=== PATIENT | male | born 1940 | race Caucasian/White ===

== ENCOUNTER 2020-11-30 20:08 | Inpatient (IN) | payer MEDICARE, BC ==
--- NOTE | 2020-11-30 20:18 | EDM.PDOC ---
ED HPI GENERAL MEDICAL PROBLEM - General Chief Complaint: Respiratory Problem Stated Complaint: COVID,SOB Time Seen by Provider: 11/30/20 20:18 Source of Information: Reports: Patient, RN Notes Reviewed History Limitations: Reports: No Limitations - History of Present Illness INITIAL COMMENTS - FREE TEXT/NARRATIVE: Jayjay presents today for complaints of shortness of breath with any activity for the past 24 to 48 hours. He states he cannot walk 10 feet without stopping to breath. He reports coughing so hard he almost passes out. He reports SOB started 2 weeks ago or more. He reports muscle aches for 2 weeks. He reports nausea off and on for 3 to 4 days. he denies fever, chills, diarrhea, constipation, vomiting, chest pain, chest pressure, palpitations, dizziness, syncope or change in urination. Jayjay states he went to see his primary provider Dr. Mari yesterday, had a chest x-ray and some blood work done. COVID19 positive 11/29/2020 Jayjay was started on hydroxychloroquine 200mg PO BID, Azithromycin (Z-pack), cetirizine 10mg PO daily. He also takes ASA 81mg PO daily, cardura 8mg, Vitamin d3 5000units, lisinopril 40mg. NKDA - Related Data Allergies Allergy/AdvReac Type Severity Reaction Status Date / Time No Known Allergies Allergy Verified 11/30/20 21:17 Home Meds: Home Meds Aspirin [Halfprin] 81 mg PO DAILY 11/30/20 [History] Azithromycin [Zithromax] 250 mg PO DAILY 11/30/20 [History] Cetirizine [ZyrTEC] 10 mg PO DAILY 11/30/20 [History] Cholecalciferol (Vitamin D3) [Vitamin D3] 5,000 unit PO DAILY 11/30/20 [History] Doxazosin Mesylate [Cardura] 8 mg PO DAILY 11/30/20 [History] Hydroxychloroquine [Plaquenil] 200 mg PO BID 11/30/20 [History] dilTIAZem HCL [Diltiazem ER] 360 mg PO DAILY 11/30/20 [History] lisinopriL [Lisinopril] 40 mg PO DAILY 11/30/20 [History] methylPREDNISolone [Medrol Dose Pack] 4 mg PO DAILY 11/30/20 [History] ED ROS GENERAL - Review of Systems Review Of Systems: See Below Constitutional: Denies: Fever, Chills, Weakness, Night Sweats, Diaphoresis HEENT: Denies: Ear Discharge, Ear Pain, Eye Discharge, Eye Pain, Sinus Problem, Throat Pain, Throat Swelling, Vision Change Respiratory: Reports: Shortness of Breath (for two weeks, significant worsening the past 24 to 48 hours, not able to ambulate 10 feet without stopping to catch breath. O2 saturation with ambulation on RA 84%.), Cough, Sputum (white). Denies: Wheezing, Pleuritic Chest Pain, Hemoptysis Cardiovascular: Reports: No Symptoms Endocrine: Reports: No Symptoms GI/Abdominal: Reports: No Symptoms : Reports: No Symptoms Musculoskeletal: Reports: Other (body aches for 2 weeks) Skin: Reports: No Symptoms Neurological: Reports: No Symptoms Psychiatric: Reports: No Symptoms Hematologic/Lymphatic: Reports: No Symptoms Immunologic: Reports: No Symptoms Free Text/Narrative/Comment: Patient not vaccinated. He denies any previous COVID19 related illness or infections. Jayjay lives by himself. ED EXAM, GENERAL - Physical Exam Exam: See Below Free Text/Narrative:: Jayjay is an alert and oriented 80 year old with dyspnea and hypoxia upon ambulation. Exam Limited By: No Limitations General Appearance: Alert, WD/WN, Moderate Distress Eye Exam: Bilateral Eye: Normal Inspection, PERRL Ears: Normal External Exam, Normal Canal, Hearing Grossly Normal Ear Exam: Right Ear: TM normal (R TM obstructed by cerumen) Nose: Normal Inspection, No Blood. No: Nasal Tenderness, Nasal Swelling, Nasal Drainage, Nasal Flaring Throat/Mouth: Normal Inspection, Normal Lips, Normal Gums, Normal Oropharynx, Normal Voice, No Airway Compromise Head: Atraumatic, Normocephalic Neck: Normal Inspection, Supple, Non-Tender, Full Range of Motion. No: Lymphadenopathy (R), Lymphadenopathy (L) Respiratory/Chest: Chest Non-Tender, Decreased Breath Sounds, Rales (to RLL), Accessory Muscle Use (with activity or ambulation. No accessory muscle use with rest and oxygen per NC). No: Rhonchi, Wheezing, Stridor, Retractions, Splinting Cardiovascular: Normal Peripheral Pulses, Regular Rate, Rhythm, No Edema, No Gallop, No Murmur, No Rub Peripheral Pulses: 4+: Radial (L), Radial (R) GI/Abdominal: Normal Bowel Sounds, Soft, Non-Tender, No Organomegaly, No Distention, No Mass. No: Guarding, Rigid, Rebound, Tender (Male) Exam: Deferred Rectal (Males) Exam: Deferred Back Exam: Normal Inspection, Full Range of Motion. No: CVA Tenderness (R), CVA Tenderness (L) Extremities: Normal Inspection, Normal Range of Motion, Non-Tender, No Pedal Edema, Normal Capillary Refill Neurological: Alert, Oriented, Normal Cognition, Normal Gait, No Motor/Sensory Deficits Psychiatric: Normal Affect, Normal Mood Skin Exam: Warm, Dry, Intact, Normal Color, No Rash Lymphatic: No Adenopathy Course - Vital Signs Last Recorded V/S: Last Vital Signs Temp 36.7 C 11/30/20 20:10 Pulse 69 11/30/20 21:24 Resp 25 H 11/30/20 21:24 BP 159/76 H 11/30/20 21:24 Pulse Ox 95 11/30/20 21:24 - Orders/Labs/Meds Orders: Active Orders 24 hr Category Date Time Status CULTURE BLOOD [BC] Urgent Lab 11/30/20 21:04 Received CULTURE BLOOD [BC] Urgent Lab 11/30/20 21:16 Received CULTURE RESPIRATORY + SMEAR [RM] Stat Lab 11/30/20 20:53 Ordered Sodium Chloride 0.9% [Normal Saline] 1,000 ml Med 11/30/20 21:00 Active IV ASDIRECTED Sodium Chloride 0.9% [Saline Flush] Med 11/30/20 20:53 Active 10 ml FLUSH ASDIRECTED PRN dexAMETHasone [Decadron] Med 11/30/20 23:45 Active 6 mg IVPUSH Q24H Blood Culture x2 Reflex Set [OM.PC] Urgent Oth 11/30/20 20:53 Ordered Saline Lock Insert [OM.PC] Routine Oth 11/30/20 20:53 Ordered Medication Orders Dexamethasone (Dexamethasone 4 Mg/Ml Sdv) 6 mg IVPUSH Q24H CAMELIA Sodium Chloride (Normal Saline) 1,000 mls @ 50 mls/hr IV ASDIRECTED CAMELIA Last Admin: 11/30/20 21:25 Dose: 50 mls/hr Documented by: GITA Sodium Chloride (Sodium Chloride 0.9% 10 Ml Syringe) 10 ml FLUSH ASDIRECTED PRN PRN Reason: Keep Vein Open Last Admin: 11/30/20 21:26 Dose: 10 ml Documented by: GITA Labs: Laboratory Tests 11/30/20 11/30/20 11/30/20 Range/Units 21:04 21:04 21:04 WBC 9.8 (4.5-11.0) K/uL RBC 4.12 L (4.30-5.90) M/uL Hgb 12.8 (12.0-15.0) g/dL Hct 37.4 L (40.0-54.0) % MCV 91 (80-98) fL MCH 31 (27-31) pg MCHC 34 (32-36) % Plt Count 366 (150-400) K/uL Add Manual Diff Yes Neutrophils % (Manual) 76 H (36-66) % Lymphocytes % (Manual) 7 L (24-44) % Monocytes % (Manual) 17 H (2-6) % Atypical Lymphocytes Few ESR 70 H (0-20) mm/hr PT 10.4 (9.5-12.0) sec INR 0.95 (0.80-1.20) APTT 23.4 L (27.0-36.0) sec D-Dimer, Quantitative (0.0-500.0) ng/mL Puncture Site ABG pH (7.350-7.450) ABG pCO2 (35.0-42.0) mmHg ABG pO2 (75.0-100.0) mmHg ABG HCO3 (22.0-26.0) mmol/L ABG Total CO2 (23.0-27.0) mmol/L ABG O2 Saturation (95.0-98.0) % ABG O2 Content (15.0-23.0) %vol ABG Base Excess mm/L ABG Hemoglobin (13.5-18.0) g/dL ABG Oxyhemoglobin % ABG Carboxyhemoglobin (0.0-1.6) % ABG Methemoglobin % Kade Test O2 Delivery Device Oxygen Flow Rate L Sodium 139 L (140-148) mmol/L Potassium 3.5 L (3.6-5.2) mmol/L Chloride 104 (100-108) mmol/L Carbon Dioxide 22 (21-32) mmol/L Anion Gap 16.5 H (5.0-14.0) mmol/L BUN 25 H (7-18) mg/dL Creatinine 1.2 (0.8-1.3) mg/dL Est Cr Clr Drug Dosing 53.09 mL/min Estimated GFR (MDRD) 58 L (>60) Glucose 127 H (74-106) mg/dL Calcium 8.6 (8.5-10.1) mg/dL Ferritin 779 H (8-388) ng/ml Total Bilirubin 0.4 (0.2-1.0) mg/dL AST 57 H (15-37) U/L ALT 47 (12-78) U/L Alkaline Phosphatase 96 (46-116) U/L Troponin I < 0.017 (0.000-0.056) ng/mL C-Reactive Protein 4.16 H (0.0-0.3) mg/dL Total Protein 6.4 (6.4-8.2) g/dL Albumin 2.7 L (3.4-5.0) g/dL Globulin 3.7 H (2.3-3.5) g/dL Albumin/Globulin Ratio 0.7 L (1.2-2.2) 11/30/20 11/30/20 Range/Units 22:01 22:20 WBC (4.5-11.0) K/uL RBC (4.30-5.90) M/uL Hgb (12.0-15.0) g/dL Hct (40.0-54.0) % MCV (80-98) fL MCH (27-31) pg MCHC (32-36) % Plt Count (150-400) K/uL Add Manual Diff Neutrophils % (Manual) (36-66) % Lymphocytes % (Manual) (24-44) % Monocytes % (Manual) (2-6) % Atypical Lymphocytes ESR (0-20) mm/hr PT (9.5-12.0) sec INR (0.80-1.20) APTT (27.0-36.0) sec D-Dimer, Quantitative 5983.30 H (0.0-500.0) ng/mL Puncture Site Lt radial ABG pH 7.483 H (7.350-7.450) ABG pCO2 26.3 L (35.0-42.0) mmHg ABG pO2 61.6 L (75.0-100.0) mmHg ABG HCO3 19.5 L (22.0-26.0) mmol/L ABG Total CO2 17.2 L (23.0-27.0) mmol/L ABG O2 Saturation 91.7 L (95.0-98.0) % ABG O2 Content 16.3 (15.0-23.0) %vol ABG Base Excess -2.3 mm/L ABG Hemoglobin 12.8 L (13.5-18.0) g/dL ABG Oxyhemoglobin 90.1 % ABG Carboxyhemoglobin 0.9 (0.0-1.6) % ABG Methemoglobin 0.8 % Kade Test Passed O2 Delivery Device Nasal cannula Oxygen Flow Rate 1.0 L Sodium (140-148) mmol/L Potassium (3.6-5.2) mmol/L Chloride (100-108) mmol/L Carbon Dioxide (21-32) mmol/L Anion Gap (5.0-14.0) mmol/L BUN (7-18) mg/dL Creatinine (0.8-1.3) mg/dL Est Cr Clr Drug Dosing mL/min Estimated GFR (MDRD) (>60) Glucose (74-106) mg/dL Calcium (8.5-10.1) mg/dL Ferritin (8-388) ng/ml Total Bilirubin (0.2-1.0) mg/dL AST (15-37) U/L ALT (12-78) U/L Alkaline Phosphatase (46-116) U/L Troponin I (0.000-0.056) ng/mL C-Reactive Protein (0.0-0.3) mg/dL Total Protein (6.4-8.2) g/dL Albumin (3.4-5.0) g/dL Globulin (2.3-3.5) g/dL Albumin/Globulin Ratio (1.2-2.2) Patient lab work reviewed, noted respiratory alkalosis, partially compensated. Meds: Medications Generic Name Dose Route Start Last Admin Trade Name Freq PRN Reason Stop Dose Admin Dexamethasone 6 mg 11/30/20 23:45 Dexamethasone 4 Mg/Ml Sdv IVPUSH Q24H CAMELIA Sodium Chloride 1,000 mls @ 50 mls/hr 11/30/20 21:00 11/30/20 21:25 Normal Saline IV 50 mls/hr ASDIRECTED CAMELIA Administration Sodium Chloride 10 ml 11/30/20 20:53 11/30/20 21:26 Sodium Chloride 0.9% 10 Ml Syringe FLUSH 10 ml ASDIRECTED PRN Administration Keep Vein Open Discontinued Medications Generic Name Dose Route Start Last Admin Trade Name Aydinq PRN Reason Stop Dose Admin Remdesivir 200 mg/ Sodium 250 mls @ 250 mls/hr 11/30/20 23:35 Chloride IV 11/30/20 23:36 ONETIME ONE - Radiology Interpretation Free Text/Narrative:: Chest x-ray completed on 11/29/[address] Mari Report states: patchy airspace opacities throughout the lungs. Infectious etiology though pulmonary edema is less likely. - Re-Assessments/Exams Free Text/Narrative Re-Assessment/Exam: 11/30/20 21:44 O2 turned off while resting on ER stretcher, O2 saturation 93% on RA. 11/30/20 22:15 Discussed patient lab and assessment with Dr. Juanjose Mari, he would like the patient admitted per the hospitalist. Dr. Maldonado notified. Patient notified, he is in agreement with plan. 11/30/20 23:37 Dr. Maldonado assumes care of patient, all his questions answered. Departure - Departure Time of Disposition: 22:30 Disposition: Admitted As Inpatient 66 Clinical Impression: SARS-CoV-2 positive, SARS pneumonia - Discharge Information Referrals: Juanjose Mari Sr, MD [Primary Care Provider] - Forms: ED Department Discharge Sepsis Event Note (ED) - Focused Exam Vital Signs: Vital Signs Temp Pulse Resp BP Pulse Ox 11/30/20 21:24 69 25 H 159/76 H 95 11/30/20 20:40 62 22 H 151/69 H 93 L 11/30/20 20:10 36.7 C 67 26 H 143/56 H 93 L - My Orders Last 24 Hours: My Active Orders 11/30/20 20:53 CULTURE RESPIRATORY + SMEAR [RM] Stat Sodium Chloride 0.9% [Saline Flush] 10 ml FLUSH ASDIRECTED PRN Blood Culture x2 Reflex Set [OM.PC] Urgent Saline Lock Insert [OM.PC] Routine 11/30/20 21:00 Sodium Chloride 0.9% [Normal Saline] 1,000 ml IV ASDIRECTED 11/30/20 21:04 CULTURE BLOOD [BC] Urgent 11/30/20 21:16 CULTURE BLOOD [BC] Urgent - Assessment/Plan Last 24 Hours: My Active Orders 11/30/20 20:53 CULTURE RESPIRATORY + SMEAR [RM] Stat Sodium Chloride 0.9% [Saline Flush] 10 ml FLUSH ASDIRECTED PRN Blood Culture x2 Reflex Set [OM.PC] Urgent Saline Lock Insert [OM.PC] Routine 11/30/20 21:00 Sodium Chloride 0.9% [Normal Saline] 1,000 ml IV ASDIRECTED 11/30/20 21:04 CULTURE BLOOD [BC] Urgent 11/30/20 21:16 CULTURE BLOOD [BC] Urgent Assessment:: SARS-CoV-2 positive, SARS pneumonia Dyspneic on exertion with hypoxia Jayjay will be admitted per Dr. Maldonado. Patient is in agreement with plan. Plan: Patient will be admitted inpatient per Dr. Maldonado.
[2020-11-30] MEDS ORDERED: Sodium Chloride 0.9% 10 ML Syringe FLUSH PRN (20:53)
[2020-11-30] MEDS ORDERED: Sodium Chloride 0.9% 1,000 ML IV SCH (21:00)
[2020-11-30] MEDS ORDERED: REMDESIVIR 200 MG in Sodium Chloride 0.9% 250 ML IV ONE (23:35)
[2020-11-30] MEDS ORDERED: Dexamethasone 4 MG/ML SDV IVPUSH SCH (23:45)
--- NOTE | 2020-11-30 23:45 | PCM.HP.2 ---
H&P History of Present Illness - General Date of Service: 11/30/20 Admit Problem/Dx: Admission Diagnosis/Problem Admission Diagnosis/Problem Pneumonia Source of Information: Patient, Provider History Limitations: Reports: No Limitations - History of Present Illness Initial Comments - Free Text/Narative: CC: I just couldn't breath HPI: Jayjay presents to the emergency room today with about 10-12 days of progressive fatigue, weakness as well as cough and shortness of breath. Symptoms have progressed a little bit more rapidly over the past 3 or 4 days. He is to be able to walk 100 to 150 feet before he became short of breath and now he can only walk 10 to 15 feet before he has to stop to catch his breath. He is coughing frequently with some clear sputum. He does not report any chest pain. He is not aware of any fevers. His appetite has been decreased but he th inks his food intake has been okay. He feels like he gets fatigued much more quickly than he is used to and has been sleeping more than usual. He has had some nausea but has not had any vomiting or diarrhea. No report of myalgias or arthralgias. 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 He did not get his Covid vaccine. He did see his primary care provider yesterday who started him on azithromycin and hydroxychloroquine as well as a Medrol Dosepak. He has gotten worse since those medications were started so he came to the emergency room tonight. Work-up in the emergency room revealed evidence for hypoxia due to the Covid pneumonia diagnosed yesterday. CRP and D-dimer are modestly elevated. Vital signs are stable other than the oxygenation. Patient will be admitted for management of hypoxic respiratory failure due to Covid pneumonia. - Related Data Allergies/Adverse Reactions: Allergies Allergy/AdvReac Type Severity Reaction Status Date / Time No Known Allergies Allergy Verified 11/30/20 21:17 Home Medications: Home Meds Aspirin [Halfprin] 81 mg PO DAILY 11/30/20 [History] Azithromycin [Zithromax] 250 mg PO DAILY 11/30/20 [History] Cetirizine [ZyrTEC] 10 mg PO DAILY 11/30/20 [History] Cholecalciferol (Vitamin D3) [Vitamin D3] 5,000 unit PO DAILY 11/30/20 [History] Doxazosin Mesylate [Cardura] 8 mg PO DAILY 11/30/20 [History] Hydroxychloroquine [Plaquenil] 200 mg PO BID 11/30/20 [History] dilTIAZem HCL [Diltiazem ER] 360 mg PO DAILY 11/30/20 [History] lisinopriL [Lisinopril] 40 mg PO DAILY 11/30/20 [History] methylPREDNISolone [Medrol Dose Pack] 4 mg PO DAILY 11/30/20 [History] Past Medical History Cardiovascular History: Reports: Hypertension - Infectious Disease History Infectious Disease History: Reports: Novel Coronavirus - Past Surgical History GI Surgical History: Reports: Appendectomy Social & Family History - Family History Family Medical History: No Pertinent Family History - Tobacco Use Tobacco Use Status *Q: Former Tobacco User Used Tobacco, but Quit: Yes Month/Year Tobacco Last Used: 45 years - Caffeine Use Caffeine Use: Reports: None - Alcohol Use Alcohol Use History: No - Recreational Drug Use Recreational Drug Use: No H&P Review of Systems - Review of Systems: Review Of Systems: See Below Free Text/Narrative: A complete 12 point review of systems was obtained. Pertinent positives and negatives are noted in the history of present illness. All other systems were reviewed and were negative except as noted. Exam - Exam Exam: See Below - Vital Signs Vital Signs: Last Vital Signs Temp 36.7 C 11/30/20 20:10 Pulse 69 11/30/20 21:24 Resp 25 H 11/30/20 21:24 BP 159/76 H 11/30/20 21:24 Pulse Ox 95 11/30/20 21:24 Weight: 87.09 kg - Exam Quality Assessment: Supplemental Oxygen General: Alert, Oriented, Cooperative. No: Mild Distress HEENT: Conjunctiva Clear. No: Mucosa Moist & [place] (dry), Scleral Icterus Neck: Supple, Trachea Midline Lungs: Normal Respiratory Effort, Crackles (mild diffuse on the right and moderate diffuse on the left ). No: Wheezing Cardiovascular: Regular Rate, Regular Rhythm, Systolic Murmur (RUSB) GI/Abdominal Exam: Normal Bowel Sounds, Soft, Non-Tender, No Distention Back Exam: Normal Inspection, Full Range of Motion Extremities: No Pedal Edema. No: Increased Warmth Peripheral Pulses: 2+: Dorsalis Pedis (L), Dorsalis Pedis (R) Skin: Warm, Dry. No: Rash Neuro Extensive - Mental Status: Alert, Oriented x3 Neuro Extensive - Motor, Sensory, Reflexes: No: Dysarthria, Abnormal Motor, Tremor Psychiatric: Alert, Normal Affect - Patient Data Lab Results Last 24 hrs: Laboratory Results - last 24 hr 11/30/20 11/30/20 11/30/20 Range/Units 21:04 21:04 21:04 WBC 9.8 (4.5-11.0) K/uL RBC 4.12 L (4.30-5.90) M/uL Hgb 12.8 (12.0-15.0) g/dL Hct 37.4 L (40.0-54.0) % MCV 91 (80-98) fL MCH 31 (27-31) pg MCHC 34 (32-36) % Plt Count 366 (150-400) K/uL Add Manual Diff Yes Neutrophils % (Manual) 76 H (36-66) % Lymphocytes % (Manual) 7 L (24-44) % Monocytes % (Manual) 17 H (2-6) % Atypical Lymphocytes Few ESR 70 H (0-20) mm/hr PT 10.4 (9.5-12.0) sec INR 0.95 (0.80-1.20) APTT 23.4 L (27.0-36.0) sec D-Dimer, Quantitative (0.0-500.0) ng/mL Puncture Site ABG pH (7.350-7.450) ABG pCO2 (35.0-42.0) mmHg ABG pO2 (75.0-100.0) mmHg ABG HCO3 (22.0-26.0) mmol/L ABG Total CO2 (23.0-27.0) mmol/L ABG O2 Saturation (95.0-98.0) % ABG O2 Content (15.0-23.0) %vol ABG Base Excess mm/L ABG Hemoglobin (13.5-18.0) g/dL ABG Oxyhemoglobin % ABG Carboxyhemoglobin (0.0-1.6) % ABG Methemoglobin % Kade Test O2 Delivery Device Oxygen Flow Rate L Sodium 139 L (140-148) mmol/L Potassium 3.5 L (3.6-5.2) mmol/L Chloride 104 (100-108) mmol/L Carbon Dioxide 22 (21-32) mmol/L Anion Gap 16.5 H (5.0-14.0) mmol/L BUN 25 H (7-18) mg/dL Creatinine 1.2 (0.8-1.3) mg/dL Est Cr Clr Drug Dosing 53.09 mL/min Estimated GFR (MDRD) 58 L (>60) Glucose 127 H (74-106) mg/dL Calcium 8.6 (8.5-10.1) mg/dL Ferritin 779 H (8-388) ng/ml Total Bilirubin 0.4 (0.2-1.0) mg/dL AST 57 H (15-37) U/L ALT 47 (12-78) U/L Alkaline Phosphatase 96 (46-116) U/L Troponin I < 0.017 (0.000-0.056) ng/mL C-Reactive Protein 4.16 H (0.0-0.3) mg/dL Total Protein 6.4 (6.4-8.2) g/dL Albumin 2.7 L (3.4-5.0) g/dL Globulin 3.7 H (2.3-3.5) g/dL Albumin/Globulin Ratio 0.7 L (1.2-2.2) 11/30/20 11/30/20 Range/Units 22:01 22:20 WBC (4.5-11.0) K/uL RBC (4.30-5.90) M/uL Hgb (12.0-15.0) g/dL Hct (40.0-54.0) % MCV (80-98) fL MCH (27-31) pg MCHC (32-36) % Plt Count (150-400) K/uL Add Manual Diff Neutrophils % (Manual) (36-66) % Lymphocytes % (Manual) (24-44) % Monocytes % (Manual) (2-6) % Atypical Lymphocytes ESR (0-20) mm/hr PT (9.5-12.0) sec INR (0.80-1.20) APTT (27.0-36.0) sec D-Dimer, Quantitative 5983.30 H (0.0-500.0) ng/mL Puncture Site Lt radial ABG pH 7.483 H (7.350-7.450) ABG pCO2 26.3 L (35.0-42.0) mmHg ABG pO2 61.6 L (75.0-100.0) mmHg ABG HCO3 19.5 L (22.0-26.0) mmol/L ABG Total CO2 17.2 L (23.0-27.0) mmol/L ABG O2 Saturation 91.7 L (95.0-98.0) % ABG O2 Content 16.3 (15.0-23.0) %vol ABG Base Excess -2.3 mm/L ABG Hemoglobin 12.8 L (13.5-18.0) g/dL ABG Oxyhemoglobin 90.1 % ABG Carboxyhemoglobin 0.9 (0.0-1.6) % ABG Methemoglobin 0.8 % Kade Test Passed O2 Delivery Device Nasal cannula Oxygen Flow Rate 1.0 L Sodium (140-148) mmol/L Potassium (3.6-5.2) mmol/L Chloride (100-108) mmol/L Carbon Dioxide (21-32) mmol/L Anion Gap (5.0-14.0) mmol/L BUN (7-18) mg/dL Creatinine (0.8-1.3) mg/dL Est Cr Clr Drug Dosing mL/min Estimated GFR (MDRD) (>60) Glucose (74-106) mg/dL Calcium (8.5-10.1) mg/dL Ferritin (8-388) ng/ml Total Bilirubin (0.2-1.0) mg/dL AST (15-37) U/L ALT (12-78) U/L Alkaline Phosphatase (46-116) U/L Troponin I (0.000-0.056) ng/mL C-Reactive Protein (0.0-0.3) mg/dL Total Protein (6.4-8.2) g/dL Albumin (3.4-5.0) g/dL Globulin (2.3-3.5) g/dL Albumin/Globulin Ratio (1.2-2.2) Result Diagrams: 11/30/20 21:04 11/30/20 21:04 Imaging Impressions Last 24 hrs: CxR from the clinic yesterday showed patchy infiltrates throughout per report Sepsis Event Note - Evaluation Sepsis Screening Result: No Definite Risk - Focused Exam Vital Signs: Vital Signs Temp Pulse Resp BP Pulse Ox 11/30/20 21:24 69 25 H 159/76 H 95 11/30/20 20:40 62 22 H 151/69 H 93 L 11/30/20 20:10 36.7 C 67 26 H 143/56 H 93 L *Q Meaningful Use (ADM) - VTE Risk Assess *Q Each Risk Factor Represents 1 Point: Obesity ( BMI > 25 kg/m2), Serious lung di sease including pneumonia Total Score 1 Point Risk Factors: 2 Each Risk Factor Represents 2 Points: None Total Score 2 Point Risk Factors: 0 Each Risk Factor Represents 3 Points: Age 75 Years or Greater Total Score 3 Point Risk Factors: 3 Each Risk Factor Represents 5 Points: None Total Score 5 Point Risk Factors: 0 Venous Thromboembolism Risk Factor Score *Q: 5 - Problem List (1) Pneumonia due to 2019 novel coronavirus SNOMED Code(s): 592252872501051008 ICD Code: U07.1 - COVID-19; J12.82 - PNEUMONIA DUE TO CORONAVIRUS DISEASE 2019 Status: Acute Current Visit: Yes (2) Acute respiratory failure due to COVID-19 SNOMED Code(s): 772395354 ICD Code: U07.1 - COVID-19; J96.00 - ACUTE RESPIRATORY FAILURE, UNSP W HYPOXIA OR HYPERCAPNIA Status: Acute Current Visit: Yes (3) HTN (hypertension) SNOMED Code(s): 25976073 ICD Code: I10 - ESSENTIAL (PRIMARY) HYPERTENSION Status: Chronic Current Visit: Yes Qualifiers: Hypertension type: primary hypertension Qualified Code(s): I10 - Essential (primary) hypertension Problem List Initiated/Reviewed/Updated: Yes Orders Last 24hrs: Active Orders 24 hr Category Date Time Status Patient Status Manage Transfer [TRANSFER] Routine ADT 11/30/20 23:36 Ordered CULTURE BLOOD [BC] Urgent Lab 11/30/20 21:04 Received CULTURE BLOOD [BC] Urgent Lab 11/30/20 21:16 Received CULTURE RESPIRATORY + SMEAR [RM] Stat Lab 11/30/20 20:53 Ordered Sodium Chloride 0.9% [Normal Saline] 1,000 ml Med 11/30/20 21:00 Active IV ASDIRECTED Sodium Chloride 0.9% [Saline Flush] Med 11/30/20 20:53 Active 10 ml FLUSH ASDIRECTED PRN dexAMETHasone [Decadron] Med 11/30/20 23:45 Active 6 mg IVPUSH Q24H Blood Culture x2 Reflex Set [OM.PC] Urgent Oth 11/30/20 20:53 Ordered Saline Lock Insert [OM.PC] Routine Oth 11/30/20 20:53 Ordered Resuscitation Status Routine Resus Stat 11/30/20 23:37 Ordered Medication Orders Dexamethasone (Dexamethasone 4 Mg/Ml Sdv) 6 mg IVPUSH Q24H CAMELIA Sodium Chloride (Normal Saline) 1,000 mls @ 50 mls/hr IV ASDIRECTED CAMELIA Last Admin: 11/30/20 21:25 Dose: 50 mls/hr Documented by: GITA Sodium Chloride (Sodium Chloride 0.9% 10 Ml Syringe) 10 ml FLUSH ASDIRECTED PRN PRN Reason: Keep Vein Open Last Admin: 11/30/20 21:26 Dose: 10 ml Documented by: GITA Assessment/Plan Comment:: ASSESSMENT AND PLAN - COVID-19 pneumonia-complicated by acute respiratory failure with hypoxia. Additional manifestations of weakness and fatigue. Diagnosed yesterday but sym ptoms started 10 to 12 days ago. Worse over the past 3 or 4 days. Unvaccinated. We discussed treatment options including dexamethasone and remdesivir. We did discuss the EUA for remdesivir. We reviewed the potential risks and benefits of this medication. He was interested in using this medicat ion to help treat the Covid infection. -Remdesivir 200 mg x 1 now and then 100 mg for 4 days -Dexamethasone 6 mg daily -Enoxaparin 40 mg every 12 hours -Symptomatic management of cough -Procalcitonin and troponin for baseline -Labs again on Thursday -Isolation precautions Essential hypertension-blood pressure controlled. -Continue home medications Maintenance issues - -DVT prophylaxis-enoxaparin -GI prophylaxis-not indicated -Nutrition-regular -Bergeron catheter-not indicated CODE STATUS -DNR/DNI Admission justification -this patient will be admitted for inpatient services and is medically appropriate meeting medical necessity for inpatient admission as outlined in my documentation. I reasonably expect the patient will require inpatient services that span a period time over 2 midnights. I reasonably expect this patient to be discharged or transferred within 96 hours [facility]. Disposition -I anticipate discharge home after the hospital stay Primary care physician -Dr. Juanjose Maldonado M.D. - Mortality Measure Prognosis:: Good
[2020-12-01] MEDS ORDERED: Acetaminophen 325 MG Tab PO PRN (01:34)
[2020-12-01] MEDS ORDERED: Magnesium Hydroxide 400 MG/5 ML Susp 30 ML Cup PO PRN (01:34)
[2020-12-01] MEDS ORDERED: Ondansetron 4 MG Tab.DIS PO PRN (01:34)
[2020-12-01] MEDS ORDERED: Ondansetron 4 MG/2 ML SDV IV PRN (01:34)
[2020-12-01] MEDS ORDERED: guaiFENesin/Dextromethorphan 100-10 MG/5 ML Soln 10 ML Cup PO PRN (01:34)
[2020-12-01] MEDS ORDERED: Enoxaparin 40 MG/0.4 ML Syringe SUBCUT ONE (02:00)
[2020-12-01] MEDS: Benzonatate 100 MG Cap PO PRN ×2 (02:56→21:02)
[2020-12-01] MEDS: Doxazosin 4 MG Tab PO SCH (08:13)
[2020-12-01] MEDS: Diltiazem 180 MG Cap.CD PO SCH (08:13)
[2020-12-01] MEDS: Cholecalciferol (Vitamin D3) 25 MCG Tab PO SCH (08:13)
[2020-12-01] MEDS: Enoxaparin 40 MG/0.4 ML Syringe SUBCUT SCH ×2 (08:14→21:04)
[2020-12-01] MEDS: Lisinopril 20 MG Tab PO SCH (09:21)
[2020-12-01] MEDS: Aspirin 81 MG Tab.EC PO SCH (09:21)
--- NOTE | 2020-12-01 10:51 | PCM.PN ---
- General Info Date of Service: 12/01/20 Subjective Update: No acute events overnight. Patient still feels a little weak and short of breath but slightly improved compared to yesterday. No diarrhea. No fevers. Still requiring supplemental oxygen and stable since yesterday. Tolerated infusion of remdesivir and injection of dexamethasone last night. Functional Status: Reports: Pain Controlled, Tolerating Diet - Review of Systems General: Reports: Weakness Pulmonary: Reports: Shortness of Breath - Patient Data Vitals - Most Recent: Last Vital Signs Temp 35.6 C L 12/01/20 08:09 Pulse 70 12/01/20 08:09 Resp 18 12/01/20 08:09 BP 177/66 H 12/01/20 09:21 Pulse Ox 92 L 12/01/20 08:09 Weight - Most Recent: 88.451 kg Lab Results Last 24 Hours: Laboratory Results - last 24 hr 11/30/20 11/30/20 11/30/20 Range/Units 21:04 21:04 21:04 WBC 9.8 (4.5-11.0) K/uL RBC 4.12 L (4.30-5.90) M/uL Hgb 12.8 (12.0-15.0) g/dL Hct 37.4 L (40.0-54.0) % MCV 91 (80-98) fL MCH 31 (27-31) pg MCHC 34 (32-36) % Plt Count 366 (150-400) K/uL Add Manual Diff Yes Neutrophils % (Manual) 76 H (36-66) % Lymphocytes % (Manual) 7 L (24-44) % Monocytes % (Manual) 17 H (2-6) % Atypical Lymphocytes Few ESR 70 H (0-20) mm/hr PT 10.4 (9.5-12.0) sec INR 0.95 (0.80-1.20) APTT 23.4 L (27.0-36.0) sec D-Dimer, Quantitative (0.0-500.0) ng/mL Puncture Site ABG pH (7.350-7.450) ABG pCO2 (35.0-42.0) mmHg ABG pO2 (75.0-100.0) mmHg ABG HCO3 (22.0-26.0) mmol/L ABG Total CO2 (23.0-27.0) mmol/L ABG O2 Saturation (95.0-98.0) % ABG O2 Content (15.0-23.0) %vol ABG Base Excess mm/L ABG Hemoglobin (13.5-18.0) g/dL ABG Oxyhemoglobin % ABG Carboxyhemoglobin (0.0-1.6) % ABG Methemoglobin % Kade Test O2 Delivery Device Oxygen Flow Rate L Sodium 139 L (140-148) mmol/L Potassium 3.5 L (3.6-5.2) mmol/L Chloride 104 (100-108) mmol/L Carbon Dioxide 22 (21-32) mmol/L Anion Gap 16.5 H (5.0-14.0) mmol/L BUN 25 H (7-18) mg/dL Creatinine 1.2 (0.8-1.3) mg/dL Est Cr Clr Drug Dosing 53.09 mL/min Estimated GFR (MDRD) 58 L (>60) Glucose 127 H (74-106) mg/dL Calcium 8.6 (8.5-10.1) mg/dL Ferritin 779 H (8-388) ng/ml Total Bilirubin 0.4 (0.2-1.0) mg/dL AST 57 H (15-37) U/L ALT 47 (12-78) U/L Alkaline Phosphatase 96 (46-116) U/L Troponin I < 0.017 (0.000-0.056) ng/mL C-Reactive Protein 4.16 H (0.0-0.3) mg/dL Total Protein 6.4 (6.4-8.2) g/dL Albumin 2.7 L (3.4-5.0) g/dL Globulin 3.7 H (2.3-3.5) g/dL Albumin/Globulin Ratio 0.7 L (1.2-2.2) Procalcitonin ng/mL 11/30/20 11/30/20 12/01/20 Range/Units 22:01 22:20 00:01 WBC (4.5-11.0) K/uL RBC (4.30-5.90) M/uL Hgb (12.0-15.0) g/dL Hct (40.0-54.0) % MCV (80-98) fL MCH (27-31) pg MCHC (32-36) % Plt Count (150-400) K/uL Add Manual Diff Neutrophils % (Manual) (36-66) % Lymphocytes % (Manual) (24-44) % Monocytes % (Manual) (2-6) % Atypical Lymphocytes ESR (0-20) mm/hr PT (9.5-12.0) sec INR (0.80-1.20) APTT (27.0-36.0) sec D-Dimer, Quantitative 5983.30 H (0.0-500.0) ng/mL Puncture Site Lt radial ABG pH 7.483 H (7.350-7.450) ABG pCO2 26.3 L (35.0-42.0) mmHg ABG pO2 61.6 L (75.0-100.0) mmHg ABG HCO3 19.5 L (22.0-26.0) mmol/L ABG Total CO2 17.2 L (23.0-27.0) mmol/L ABG O2 Saturation 91.7 L (95.0-98.0) % ABG O2 Content 16.3 (15.0-23.0) %vol ABG Base Excess -2.3 mm/L ABG Hemoglobin 12.8 L (13.5-18.0) g/dL ABG Oxyhemoglobin 90.1 % ABG Carboxyhemoglobin 0.9 (0.0-1.6) % ABG Methemoglobin 0.8 % Kade Test Passed O2 Delivery Device Nasal cannula Oxygen Flow Rate 1.0 L Sodium (140-148) mmol/L Potassium (3.6-5.2) mmol/L Chloride (100-108) mmol/L Carbon Dioxide (21-32) mmol/L Anion Gap (5.0-14.0) mmol/L BUN (7-18) mg/dL Creatinine (0.8-1.3) mg/dL Est Cr Clr Drug Dosing mL/min Estimated GFR (MDRD) (>60) Glucose (74-106) mg/dL Calcium (8.5-10.1) mg/dL Ferritin (8-388) ng/ml Total Bilirubin (0.2-1.0) mg/dL AST (15-37) U/L ALT (12-78) U/L Alkaline Phosphatase (46-116) U/L Troponin I < 0.017 (0.000-0.056) ng/mL C-Reactive Protein (0.0-0.3) mg/dL Total Protein (6.4-8.2) g/dL Albumin (3.4-5.0) g/dL Globulin (2.3-3.5) g/dL Albumin/Globulin Ratio (1.2-2.2) Procalcitonin ng/mL 12/01/20 12/01/20 Range/Units 04:20 04:20 WBC (4.5-11.0) K/uL RBC (4.30-5.90) M/uL Hgb (12.0-15.0) g/dL Hct (40.0-54.0) % MCV (80-98) fL MCH (27-31) pg MCHC (32-36) % Plt Count (150-400) K/uL Add Manual Diff Neutrophils % (Manual) (36-66) % Lymphocytes % (Manual) (24-44) % Monocytes % (Manual) (2-6) % Atypical Lymphocytes ESR (0-20) mm/hr PT (9.5-12.0) sec INR (0.80-1.20) APTT (27.0-36.0) sec D-Dimer, Quantitative (0.0-500.0) ng/mL Puncture Site ABG pH (7.350-7.450) ABG pCO2 (35.0-42.0) mmHg ABG pO2 (75.0-100.0) mmHg ABG HCO3 (22.0-26.0) mmol/L ABG Total CO2 (23.0-27.0) mmol/L ABG O2 Saturation (95.0-98.0) % ABG O2 Content (15.0-23.0) %vol ABG Base Excess mm/L ABG Hemoglobin (13.5-18.0) g/dL ABG Oxyhemoglobin % ABG Carboxyhemoglobin (0.0-1.6) % ABG Methemoglobin % Kade Test O2 Delivery Device Oxygen Flow Rate L Sodium 142 (140-148) mmol/L Potassium 3.5 L (3.6-5.2) mmol/L Chloride 107 (100-108) mmol/L Carbon Dioxide 22 (21-32) mmol/L Anion Gap 16.5 H (5.0-14.0) mmol/L BUN 21 H (7-18) mg/dL Creatinine 1.0 (0.8-1.3) mg/dL Est Cr Clr Drug Dosing 61.79 mL/min Estimated GFR (MDRD) > 60 (>60) Glucose 160 H (74-106) mg/dL Calcium 8.2 L (8.5-10.1) mg/dL Ferritin (8-388) ng/ml Total Bilirubin 0.4 (0.2-1.0) mg/dL AST 54 H (15-37) U/L ALT 43 (12-78) U/L Alkaline Phosphatase 87 (46-116) U/L Troponin I (0.000-0.056) ng/mL C-Reactive Protein (0.0-0.3) mg/dL Total Protein 5.8 L (6.4-8.2) g/dL Albumin 2.4 L (3.4-5.0) g/dL Globulin 3.4 (2.3-3.5) g/dL Albumin/Globulin Ratio 0.7 L (1.2-2.2) Procalcitonin < 0.05 ng/mL Len Results Last 24 Hours: Microbiology 12/01/20 02:30 Gram Stain - Final Sputum - Expectorated Med Orders - Current: Current Medications Acetaminophen (Acetaminophen 325 Mg Tab) 650 mg PO Q4H PRN PRN Reason: Pain (Mild 1-3)/fever Aspirin (Aspirin 81 Mg Tab.Ec) 81 mg PO DAILY [facility] Last Admin: 12/01/20 09:21 Dose: 81 mg Documented by: Benzonatate (Benzonatate 100 Mg Cap) 100 mg PO TID PRN PRN Reason: Cough Last Admin: 12/01/20 02:56 Dose: 100 mg Documented by: Cholecalciferol (Cholecalciferol (Vitamin D3) 25 Mcg Tab) 125 mcg PO DAILY [facility] Last Admin: 12/01/20 08:13 Dose: 125 mcg Documented by: Dexamethasone (Dexamethasone 4 Mg/Ml Sdv) 6 mg IVPUSH Q24H [facility] Diltiazem HCl (Diltiazem 180 Mg Cap.Cd) 360 mg PO DAILY [facility] Last Admin: 12/01/20 08:13 Dose: 360 mg Documented by: Doxazosin Mesylate (Doxazosin 4 Mg Tab) 8 mg PO DAILY [facility] Last Admin: 12/01/20 08:13 Dose: 8 mg Documented by: Enoxaparin Sodium (Enoxaparin 40 Mg/0.4 Ml Syringe) 40 mg SUBCUT Q12H [facility] Last Admin: 12/01/20 08:14 Dose: 40 mg Documented by: Guaifenesin/Dextromethorphan (Guaifenesin/Dextromethorphan 100-10 Mg/5 Ml Soln 10 Ml Cup) 10 ml PO Q4H PRN PRN Reason: Cough Remdesivir 100 mg/ Sodium (Chloride) 100 mls @ 100 mls/hr IV Q24H [facility] Stop: 12/04/20 21:59 Lisinopril (Lisinopril 20 Mg Tab) 40 mg PO DAILY [facility] Last Admin: 12/01/20 09:21 Dose: 40 mg Documented by: Magnesium Hydroxide (Magnesium Hydroxide 400 Mg/5 Ml Susp 30 Ml Cup) 30 ml PO Q12H PRN PRN Reason: Constipation Melatonin (Melatonin 3 Mg Tab) 9 mg PO BEDTIME PRN PRN Reason: Sleep Ondansetron HCl (Ondansetron 4 Mg/2 Ml Sdv) 4 mg IV Q6H PRN PRN Reason: Nausea/Vomiting Ondansetron HCl (Ondansetron 4 Mg Tab.Dis) 4 mg PO Q6H PRN PRN Reason: Nausea able to take PO Senna/Docusate Sodium (Docusate Sodium/Sennosides 50-8.6 Mg Tab) 1 tab PO BID PRN PRN Reason: Constipation Sodium Chloride (Sodium Chloride 0.9% 10 Ml Syringe) 10 ml FLUSH ASDIRECTED PRN PRN Reason: Keep Vein Open Last Admin: 11/30/20 21:26 Dose: 10 ml Documented by: Discontinued Medications Dexamethasone (Dexamethasone 4 Mg/Ml Sdv) 6 mg IVPUSH Q24H [facility] Last Admin: 12/01/20 01:41 Dose: 6 mg Documented by: Enoxaparin Sodium (Enoxaparin 40 Mg/0.4 Ml Syringe) 40 mg SUBCUT NOW ONE Stop: 12/01/20 02:01 Last Admin: 12/01/20 01:56 Dose: 40 mg Documented by: Sodium Chloride (Normal Saline) 1,000 mls @ 50 mls/hr IV ASDIRECTED [facility] Last Admin: 11/30/20 21:25 Dose: 50 mls/hr Documented by: Remdesivir 200 mg/ Sodium (Chloride) 250 mls @ 250 mls/hr IV ONETIME ONE Stop: 11/30/20 23:36 Last Admin: 12/01/20 01:51 Dose: 250 mls/hr Documented by: - Exam Quality Assessment: Supplemental Oxygen General: Alert, Oriented, Cooperative, No Acute Distress Lungs: Normal Respiratory Effort GI/Abdominal Exam: Soft, No Distention Extremities: No Pedal Edema Psy/Mental Status: Alert, Normal Affect - Patient Data Lab Results Last 24 hrs: Laboratory Results - last 24 hr 11/30/20 11/30/20 11/30/20 Range/Units 21:04 21:04 21:04 WBC 9.8 (4.5-11.0) K/uL RBC 4.12 L (4.30-5.90) M/uL Hgb 12.8 (12.0-15.0) g/dL Hct 37.4 L (40.0-54.0) % MCV 91 (80-98) fL MCH 31 (27-31) pg MCHC 34 (32-36) % Plt Count 366 (150-400) K/uL Add Manual Diff Yes Neutrophils % (Manual) 76 H (36-66) % Lymphocytes % (Manual) 7 L (24-44) % Monocytes % (Manual) 17 H (2-6) % Atypical Lymphocytes Few ESR 70 H (0-20) mm/hr PT 10.4 (9.5-12.0) sec INR 0.95 (0.80-1.20) APTT 23.4 L (27.0-36.0) sec D-Dimer, Quantitative (0.0-500.0) ng/mL Puncture Site ABG pH (7.350-7.450) ABG pCO2 (35.0-42.0) mmHg ABG pO2 (75.0-100.0) mmHg ABG HCO3 (22.0-26.0) mmol/L ABG Total CO2 (23.0-27.0) mmol/L ABG O2 Saturation (95.0-98.0) % ABG O2 Content (15.0-23.0) %vol ABG Base Excess mm/L ABG Hemoglobin (13.5-18.0) g/dL ABG Oxyhemoglobin % ABG Carboxyhemoglobin (0.0-1.6) % ABG Methemoglobin % Kade Test O2 Delivery Device Oxygen Flow Rate L Sodium 139 L (140-148) mmol/L Potassium 3.5 L (3.6-5.2) mmol/L Chloride 104 (100-108) mmol/L Carbon Dioxide 22 (21-32) mmol/L Anion Gap 16.5 H (5.0-14.0) mmol/L BUN 25 H (7-18) mg/dL Creatinine 1.2 (0.8-1.3) mg/dL Est Cr Clr Drug Dosing 53.09 mL/min Estimated GFR (MDRD) 58 L (>60) Glucose 127 H (74-106) mg/dL Calcium 8.6 (8.5-10.1) mg/dL Ferritin 779 H (8-388) ng/ml Total Bilirubin 0.4 (0.2-1.0) mg/dL AST 57 H (15-37) U/L ALT 47 (12-78) U/L Alkaline Phosphatase 96 (46-116) U/L Troponin I < 0.017 (0.000-0.056) ng/mL C-Reactive Protein 4.16 H (0.0-0.3) mg/dL Total Protein 6.4 (6.4-8.2) g/dL Albumin 2.7 L (3.4-5.0) g/dL Globulin 3.7 H (2.3-3.5) g/dL Albumin/Globulin Ratio 0.7 L (1.2-2.2) Procalcitonin ng/mL 11/30/20 11/30/20 12/01/20 Range/Units 22:01 22:20 00:01 WBC (4.5-11.0) K/uL RBC (4.30-5.90) M/uL Hgb (12.0-15.0) g/dL Hct (40.0-54.0) % MCV (80-98) fL MCH (27-31) pg MCHC (32-36) % Plt Count (150-400) K/uL Add Manual Diff Neutrophils % (Manual) (36-66) % Lymphocytes % (Manual) (24-44) % Monocytes % (Manual) (2-6) % Atypical Lymphocytes ESR (0-20) mm/hr PT (9.5-12.0) sec INR (0.80-1.20) APTT (27.0-36.0) sec D-Dimer, Quantitative 5983.30 H (0.0-500.0) ng/mL Puncture Site Lt radial ABG pH 7.483 H (7.350-7.450) ABG pCO2 26.3 L (35.0-42.0) mmHg ABG pO2 61.6 L (75.0-100.0) mmHg ABG HCO3 19.5 L (22.0-26.0) mmol/L ABG Total CO2 17.2 L (23.0-27.0) mmol/L ABG O2 Saturation 91.7 L (95.0-98.0) % ABG O2 Content 16.3 (15.0-23.0) %vol ABG Base Excess -2.3 mm/L ABG Hemoglobin 12.8 L (13.5-18.0) g/dL ABG Oxyhemoglobin 90.1 % ABG Carboxyhemoglobin 0.9 (0.0-1.6) % ABG Methemoglobin 0.8 % Kade Test Passed O2 Delivery Device Nasal cannula Oxygen Flow Rate 1.0 L Sodium (140-148) mmol/L Potassium (3.6-5.2) mmol/L Chloride (100-108) mmol/L Carbon Dioxide (21-32) mmol/L Anion Gap (5.0-14.0) mmol/L BUN (7-18) mg/dL Creatinine (0.8-1.3) mg/dL Est Cr Clr Drug Dosing mL/min Estimated GFR (MDRD) (>60) Glucose (74-106) mg/dL Calcium (8.5-10.1) mg/dL Ferritin (8-388) ng/ml Total Bilirubin (0.2-1.0) mg/dL AST (15-37) U/L ALT (12-78) U/L Alkaline Phosphatase (46-116) U/L Troponin I < 0.017 (0.000-0.056) ng/mL C-Reactive Protein (0.0-0.3) mg/dL Total Protein (6.4-8.2) g/dL Albumin (3.4-5.0) g/dL Globulin (2.3-3.5) g/dL Albumin/Globulin Ratio (1.2-2.2) Procalcitonin ng/mL 12/01/20 12/01/20 Range/Units 04:20 04:20 WBC (4.5-11.0) K/uL RBC (4.30-5.90) M/uL Hgb (12.0-15.0) g/dL Hct (40.0-54.0) % MCV (80-98) fL MCH (27-31) pg MCHC (32-36) % Plt Count (150-400) K/uL Add Manual Diff Neutrophils % (Manual) (36-66) % Lymphocytes % (Manual) (24-44) % Monocytes % (Manual) (2-6) % Atypical Lymphocytes ESR (0-20) mm/hr PT (9.5-12.0) sec INR (0.80-1.20) APTT (27.0-36.0) sec D-Dimer, Quantitative (0.0-500.0) ng/mL Puncture Site ABG pH (7.350-7.450) ABG pCO2 (35.0-42.0) mmHg ABG pO2 (75.0-100.0) mmHg ABG HCO3 (22.0-26.0) mmol/L ABG Total CO2 (23.0-27.0) mmol/L ABG O2 Saturation (95.0-98.0) % ABG O2 Content (15.0-23.0) %vol ABG Base Excess mm/L ABG Hemoglobin (13.5-18.0) g/dL ABG Oxyhemoglobin % ABG Carboxyhemoglobin (0.0-1.6) % ABG Methemoglobin % Kade Test O2 Delivery Device Oxygen Flow Rate L Sodium 142 (140-148) mmol/L Potassium 3.5 L (3.6-5.2) mmol/L Chloride 107 (100-108) mmol/L Carbon Dioxide 22 (21-32) mmol/L Anion Gap 16.5 H (5.0-14.0) mmol/L BUN 21 H (7-18) mg/dL Creatinine 1.0 (0.8-1.3) mg/dL Est Cr Clr Drug Dosing 61.79 mL/min Estimated GFR (MDRD) > 60 (>60) Glucose 160 H (74-106) mg/dL Calcium 8.2 L (8.5-10.1) mg/dL Ferritin (8-388) ng/ml Total Bilirubin 0.4 (0.2-1.0) mg/dL AST 54 H (15-37) U/L ALT 43 (12-78) U/L Alkaline Phosphatase 87 (46-116) U/L Troponin I (0.000-0.056) ng/mL C-Reactive Protein (0.0-0.3) mg/dL Total Protein 5.8 L (6.4-8.2) g/dL Albumin 2.4 L (3.4-5.0) g/dL Globulin 3.4 (2.3-3.5) g/dL Albumin/Globulin Ratio 0.7 L (1.2-2.2) Procalcitonin < 0.05 ng/mL Result Diagrams: 11/30/20 21:04 12/01/20 04:20 Len Results Last 24 hrs: Microbiology 12/01/20 02:30 Gram Stain - Final Sputum - Expectorated Sepsis Event Note - Evaluation Sepsis Screening Result: No Definite Risk - Focused Exam Vital Signs: Vital Signs Temp Temp Pulse Resp BP BP Pulse Ox 12/01/20 09:21 177/66 H 12/01/20 08:20 177/66 H 12/01/20 08:13 184/72 H 12/01/20 08:09 35.6 C L 70 18 184/72 H 92 L 12/01/20 07:12 92 L 12/01/20 05:34 53 L 18 92 L 12/01/20 01:34 36.7 C 58 L 17 165/71 H 92 L 12/01/20 00:23 36.7 C 57 L 16 162/70 H 95 11/30/20 23:54 57 L 21 H 163/64 H 94 L 11/30/20 23:23 57 L 23 H 167/74 H 93 L 11/30/20 22:53 58 L 18 169/77 H 93 L Pulse Ox 12/01/20 09:21 12/01/20 08:20 12/01/20 08:13 12/01/20 08:09 12/01/20 07:12 12/01/20 05:34 12/01/20 01:34 92 L 12/01/20 00:23 11/30/20 23:54 11/30/20 23:23 11/30/20 22:53 - Problem List & Annotations (1) Pneumonia due to 2019 novel coronavirus SNOMED Code(s): 111557854871707249 Code(s): U07.1 - COVID-19; J12.82 - PNEUMONIA DUE TO CORONAVIRUS DISEASE 2019 Status: Acute Current Visit: Yes (2) Acute respiratory failure due to COVID-19 SNOMED Code(s): 198742499 Code(s): U07.1 - COVID-19; J96.00 - ACUTE RESPIRATORY FAILURE, UNSP W HYPOXIA OR HYPERCAPNIA Status: Acute Current Visit: Yes (3) HTN (hypertension) SNOMED Code(s): 28785160 Code(s): I10 - ESSENTIAL (PRIMARY) HYPERTENSION Status: Chronic Current Visit: Yes Qualifiers: Hypertension type: primary hypertension Qualified Code(s): I10 - Essential (primary) hypertension - Problem List Review Problem List Initiated/Reviewed/Updated: Yes - My Orders Last 24 Hours: My Active Orders 11/30/20 23:37 Resuscitation Status Routine 12/01/20 01:34 Acetaminophen [TylenoL] 650 mg PO Q4H PRN Benzonatate [Tessalon Perles] 100 mg PO TID PRN Dextromethorphan/guaiFENesin [Robitussin DM] 10 ml PO Q4H PRN Docusate Sodium/Sennosides [Senna Plus] 1 tab PO BID PRN Magnesium Hydroxide [Milk of Magnesia] 30 ml PO Q12H PRN Melatonin 9 mg PO BEDTIME PRN Ondansetron [Zofran ODT] 4 mg PO Q6H PRN Ondansetron [Zofran] 4 mg IV Q6H PRN 12/01/20 01:34 Patient Status [ADT] Routine Intake and Output [RC] QSHIFT Notify Provider Vital Signs [RC] .PRN Nurse Communication: Isolation [RC] ASDIRECTED Oxygen Therapy [RC] .PRN Pulse Oximetry [RC] CONTINUOUS Up ad Dian [RC] ASDIRECTED VTE/DVT Education [RC] Per Unit Routine Vital Signs [RC] Q4H Isolation [COMM] Routine 12/01/20 Breakfast Regular Diet [DIET] 12/01/20 09:00 Aspirin [Halfprin] 81 mg PO DAILY Cholecalciferol (Vitamin D3) [Vitamin D3] 125 mcg PO DAILY Diltiazem [Cardizem CD] 360 mg PO DAILY Doxazosin [Cardura] 8 mg PO DAILY Enoxaparin [Lovenox] 40 mg SUBCUT Q12H lisinopriL [Prinivil] 40 mg PO DAILY 12/01/20 21:00 Remdesivir 100 mg Sodium Chloride 0.9% [Normal Saline] 100 ml IV Q24H 12/01/20 22:00 dexAMETHasone [Decadron] 6 mg IVPUSH Q24H 12/02/20 05:11 CBC W/O DIFF,HEMOGRAM [HEME] AM COMPREHENSIVE METABOLIC PN,CMP [CHEM] AM CRP [C-REACTIVE PROTEIN] [CHEM] AM D-DIMER QUANTITATIVE [COAG] AM - Plan Plan:: ASSESSMENT AND PLAN - COVID-19 pneumonia-complicated by acute respiratory failure with hypoxia. Still hypoxic but symptomatically a little better today. Strength and appetite are little better. No fevers. Tolerating treatment so far. -Remdesivir 200 mg x 1 now and then 100 mg for 4 days (1 of 4) -Dexamethasone 6 mg daily (day 2) -Enoxaparin 40 mg every 12 hours -Symptomatic management of cough -Labs again on Thursday -Isolation precautions Essential hypertension-blood pressure controlled. -Continue home medications Maintenance issues - -DVT prophylaxis-enoxaparin -GI prophylaxis-not indicated -Nutrition-regular -Bergeron catheter-not indicated CODE STATUS -DNR/DNI Disposition -I anticipate discharge home after the hospital stay Primary care physician -Dr. Juanjose Maldonado M.D.
[2020-12-01] MEDS: REMDESIVIR 100 MG in Sodium Chloride 0.9% 100 ML IV SCH (21:05)
[2020-12-01] MEDS: Dexamethasone 4 MG/ML SDV IVPUSH SCH (21:05)
[2020-12-02] MEDS: Aspirin 81 MG Tab.EC PO SCH (08:28)
[2020-12-02] MEDS: Doxazosin 4 MG Tab PO SCH (08:28)
[2020-12-02] MEDS: Cholecalciferol (Vitamin D3) 25 MCG Tab PO SCH (08:28)
[2020-12-02] MEDS: Lisinopril 20 MG Tab PO SCH (08:28)
[2020-12-02] MEDS: Enoxaparin 40 MG/0.4 ML Syringe SUBCUT SCH ×2 (08:29→21:44)
[2020-12-02] MEDS: Diltiazem 180 MG Cap.CD PO SCH (08:29)
[2020-12-02] MEDS: Benzonatate 100 MG Cap PO PRN ×2 (09:16→21:44)
--- NOTE | 2020-12-02 11:23 | PCM.PN ---
- General Info Date of Service: 12/02/20 Subjective Update: No acute events overnight. Patient did have an episode this morning where he tried to go to the bathroom without his oxygen. Oxygen saturations dropped down into the mid 70s and he did require several minutes to recover. Still has intermittent loose cough which is a little better with the Tessalon Perles. He feels short of breath which is mild at rest but more intense with any activity. No chest pain, nausea or headache. No fevers. D-dimer and CRP have improved since admission but white blood cell count is slightly higher which could be steroid effect. Still requiring 2 L of supplemental oxygen. - Patient Data Vitals - Most Recent: Last Vital Signs Temp 36.2 C 12/02/20 11:09 Pulse 77 12/02/20 11:09 Resp 18 12/02/20 11:09 BP 178/67 H 12/02/20 11:09 Pulse Ox 93 L 12/02/20 11:09 Weight - Most Recent: 88.451 kg I&O - Last 24 Hours: Intake & Output 12/01/20 12/02/20 12/02/20 22:59 06:59 14:59 Intake Total 240 600 240 Output Total 850 600 Balance -610 0 240 Lab Results Last 24 Hours: Laboratory Results - last 24 hr 12/02/20 12/02/20 12/02/20 Range/Units 04:30 04:30 04:30 WBC 14.2 H (4.5-11.0) K/uL RBC 4.14 L (4.30-5.90) M/uL Hgb 12.6 (12.0-15.0) g/dL Hct 38.5 L (40.0-54.0) % MCV 93 (80-98) fL MCH 30 (27-31) pg MCHC 33 (32-36) % Plt Count 387 (150-400) K/uL D-Dimer, Quantitative 2613.82 H (0.0-500.0) ng/mL Sodium 144 (140-148) mmol/L Potassium 3.6 (3.6-5.2) mmol/L Chloride 108 (100-108) mmol/L Carbon Dioxide 23 (21-32) mmol/L Anion Gap 12.6 (5.0-14.0) mmol/L BUN 27 H (7-18) mg/dL Creatinine 1.0 (0.8-1.3) mg/dL Est Cr Clr Drug Dosing 61.79 mL/min Estimated GFR (MDRD) > 60 (>60) Glucose 145 H (74-106) mg/dL Calcium 8.2 L (8.5-10.1) mg/dL Total Bilirubin 0.3 (0.2-1.0) mg/dL AST 36 (15-37) U/L ALT 48 (12-78) U/L Alkaline Phosphatase 87 (46-116) U/L C-Reactive Protein 1.05 H (0.0-0.3) mg/dL Total Protein 6.0 L (6.4-8.2) g/dL Albumin 2.5 L (3.4-5.0) g/dL Globulin 3.5 (2.3-3.5) g/dL Albumin/Globulin Ratio 0.7 L (1.2-2.2) Len Results Last 24 Hours: Microbiology 12/01/20 02:30 Gram Stain - Final Sputum - Expectorated Respiratory Culture - Preliminary NORMAL RESPIRATORY ANDRES 1 DAY 11/30/20 21:16 Aerobic Blood Culture - Preliminary Blood - Arm, Left NO GROWTH AFTER 1 DAY Anaerobic Blood Culture - Preliminary NO GROWTH AFTER 1 DAY 11/30/20 21:04 Aerobic Blood Culture - Preliminary Blood - Arm, Left NO GROWTH AFTER 1 DAY Anaerobic Blood Culture - Preliminary NO GROWTH AFTER 1 DAY Med Orders - Current: Current Medications Acetaminophen (Acetaminophen 325 Mg Tab) 650 mg PO Q4H PRN PRN Reason: Pain (Mild 1-3)/fever Aspirin (Aspirin 81 Mg Tab.Ec) 81 mg PO DAILY [facility] Last Admin: 12/02/20 08:28 Dose: 81 mg Documented by: Benzonatate (Benzonatate 100 Mg Cap) 100 mg PO TID PRN PRN Reason: Cough Last Admin: 12/02/20 09:16 Dose: 100 mg Documented by: Cholecalciferol (Cholecalciferol (Vitamin D3) 25 Mcg Tab) 125 mcg PO DAILY [facility] Last Admin: 12/02/20 08:28 Dose: 125 mcg Documented by: Dexamethasone (Dexamethasone 4 Mg/Ml Sdv) 6 mg IVPUSH Q24H [facility] Last Admin: 12/01/20 21:05 Dose: 6 mg Documented by: Diltiazem HCl (Diltiazem 180 Mg Cap.Cd) 360 mg PO DAILY [facility] Last Admin: 12/02/20 08:29 Dose: 360 mg Documented by: Doxazosin Mesylate (Doxazosin 4 Mg Tab) 8 mg PO DAILY [facility] Last Admin: 12/02/20 08:28 Dose: 8 mg Documented by: Enoxaparin Sodium (Enoxaparin 40 Mg/0.4 Ml Syringe) 40 mg SUBCUT Q12H [facility] Last Admin: 12/02/20 08:29 Dose: 40 mg Documented by: Guaifenesin/Dextromethorphan (Guaifenesin/Dextromethorphan 100-10 Mg/5 Ml Soln 10 Ml Cup) 10 ml PO Q4H PRN PRN Reason: Cough Remdesivir 100 mg/ Sodium (Chloride) 100 mls @ 100 mls/hr IV Q24H [facility] Stop: 12/04/20 21:59 Last Admin: 12/01/20 21:05 Dose: 100 mls/hr Documented by: Lisinopril (Lisinopril 20 Mg Tab) 40 mg PO DAILY [facility] Last Admin: 12/02/20 08:28 Dose: 40 mg Documented by: Magnesium Hydroxide (Magnesium Hydroxide 400 Mg/5 Ml Susp 30 Ml Cup) 30 ml PO Q12H PRN PRN Reason: Constipation Melatonin (Melatonin 3 Mg Tab) 9 mg PO BEDTIME PRN PRN Reason: Sleep Ondansetron HCl (Ondansetron 4 Mg/2 Ml Sdv) 4 mg IV Q6H PRN PRN Reason: Nausea/Vomiting Ondansetron HCl (Ondansetron 4 Mg Tab.Dis) 4 mg PO Q6H PRN PRN Reason: Nausea able to take PO Senna/Docusate Sodium (Docusate Sodium/Sennosides 50-8.6 Mg Tab) 1 tab PO BID PRN PRN Reason: Constipation Sodium Chloride (Sodium Chloride 0.9% 10 Ml Syringe) 10 ml FLUSH ASDIRECTED PRN PRN Reason: Keep Vein Open Last Admin: 11/30/20 21:26 Dose: 10 ml Documented by: Discontinued Medications Dexamethasone (Dexamethasone 4 Mg/Ml Sdv) 6 mg IVPUSH Q24H [facility] Last Admin: 12/01/20 01:41 Dose: 6 mg Documented by: Enoxaparin Sodium (Enoxaparin 40 Mg/0.4 Ml Syringe) 40 mg SUBCUT NOW ONE Stop: 12/01/20 02:01 Last Admin: 12/01/20 01:56 Dose: 40 mg Documented by: Sodium Chloride (Normal Saline) 1,000 mls @ 50 mls/hr IV ASDIRECTED [facility] Last Admin: 11/30/20 21:25 Dose: 50 mls/hr Documented by: Remdesivir 200 mg/ Sodium (Chloride) 250 mls @ 250 mls/hr IV ONETIME ONE Stop: 11/30/20 23:36 Last Admin: 12/01/20 01:51 Dose: 250 mls/hr Documented by: - Exam Quality Assessment: Supplemental Oxygen General: Alert, Oriented, Cooperative, No Acute Distress Lungs: Normal Respiratory Effort. No: Wheezing GI/Abdominal Exam: Soft, No Distention Extremities: No Pedal Edema. No: Increased Warmth Psy/Mental Status: Alert, Normal Affect - Patient Data Lab Results Last 24 hrs: Laboratory Results - last 24 hr 12/02/20 12/02/20 12/02/20 Range/Units 04:30 04:30 04:30 WBC 14.2 H (4.5-11.0) K/uL RBC 4.14 L (4.30-5.90) M/uL Hgb 12.6 (12.0-15.0) g/dL Hct 38.5 L (40.0-54.0) % MCV 93 (80-98) fL MCH 30 (27-31) pg MCHC 33 (32-36) % Plt Count 387 (150-400) K/uL D-Dimer, Quantitative 2613.82 H (0.0-500.0) ng/mL Sodium 144 (140-148) mmol/L Potassium 3.6 (3.6-5.2) mmol/L Chloride 108 (100-108) mmol/L Carbon Dioxide 23 (21-32) mmol/L Anion Gap 12.6 (5.0-14.0) mmol/L BUN 27 H (7-18) mg/dL Creatinine 1.0 (0.8-1.3) mg/dL Est Cr Clr Drug Dosing 61.79 mL/min Estimated GFR (MDRD) > 60 (>60) Glucose 145 H (74-106) mg/dL Calcium 8.2 L (8.5-10.1) mg/dL Total Bilirubin 0.3 (0.2-1.0) mg/dL AST 36 (15-37) U/L ALT 48 (12-78) U/L Alkaline Phosphatase 87 (46-116) U/L C-Reactive Protein 1.05 H (0.0-0.3) mg/dL Total Protein 6.0 L (6.4-8.2) g/dL Albumin 2.5 L (3.4-5.0) g/dL Globulin 3.5 (2.3-3.5) g/dL Albumin/Globulin Ratio 0.7 L (1.2-2.2) Result Diagrams: 12/02/20 04:30 12/02/20 04:30 Len Results Last 24 hrs: Microbiology 12/01/20 02:30 Gram Stain - Final Sputum - Expectorated Respiratory Culture - Preliminary NORMAL RESPIRATORY ANDRES 1 DAY 11/30/20 21:16 Aerobic Blood Culture - Preliminary Blood - Arm, Left NO GROWTH AFTER 1 DAY Anaerobic Blood Culture - Preliminary NO GROWTH AFTER 1 DAY 11/30/20 21:04 Aerobic Blood Culture - Preliminary Blood - Arm, Left NO GROWTH AFTER 1 DAY Anaerobic Blood Culture - Preliminary NO GROWTH AFTER 1 DAY Sepsis Event Note - Evaluation Sepsis Screening Result: Possible Sepsis Risk - Focused Exam Vital Signs: Vital Signs Temp Pulse Resp BP BP Pulse Ox 12/02/20 11:09 36.2 C 77 18 178/67 H 93 L 12/02/20 09:29 90 L 12/02/20 08:28 178/68 H 12/02/20 08:26 35.8 C L 73 16 178/68 H 90 L 12/02/20 07:16 95 12/02/20 02:38 34.7 C L 53 L 16 170/67 H 97 12/02/20 02:00 95 12/02/20 00:00 53 L 95 - Problem List & Annotations (1) Pneumonia due to 2019 novel coronavirus SNOMED Code(s): 809256611451217962 Code(s): U07.1 - COVID-19; J12.82 - PNEUMONIA DUE TO CORONAVIRUS DISEASE 2019 Status: Acute Current Visit: Yes (2) Acute respiratory failure due to COVID-19 SNOMED Code(s): 473441337 Code(s): U07.1 - COVID-19; J96.00 - ACUTE RESPIRATORY FAILURE, UNSP W HYPOXIA OR HYPERCAPNIA Status: Acute Current Visit: Yes (3) HTN (hypertension) SNOMED Code(s): 00960001 Code(s): I10 - ESSENTIAL (PRIMARY) HYPERTENSION Status: Chronic Current Visit: Yes Qualifiers: Hypertension type: primary hypertension Qualified Code(s): I10 - Essential (primary) hypertension - Problem List Review Problem List Initiated/Reviewed/Updated: Yes - My Orders Last 24 Hours: My Active Orders 12/01/20 21:00 Remdesivir 100 mg Sodium Chloride 0.9% [Normal Saline] 100 ml IV Q24H 12/01/20 22:00 dexAMETHasone [Decadron] 6 mg IVPUSH Q24H - Plan Plan:: ASSESSMENT AND PLAN - COVID-19 pneumonia-complicated by acute respiratory failure with hypoxia. Still hypoxic but respiratory status stable on 2 L. Significant desaturation with activity. Tolerating treatment. Symptomatically feeling a little better. -Remdesivir 200 mg x 1 now and then 100 mg for 4 days (2 of 4) -Dexamethasone 6 mg daily (day 3) -Enoxaparin 40 mg every 12 hours -Symptomatic management of cough -Labs every 2 to 3 days -Isolation precautions Essential hypertension-blood pressure controlled. -Continue home medications Maintenance issues - -DVT prophylaxis-enoxaparin -GI prophylaxis-not indicated -Nutrition-regular -Bergeron catheter-not indicated CODE STATUS -DNR/DNI Disposition -I anticipate discharge home after the hospital stay Primary care physician -Dr. Juanjose Maldonado M.D.
[2020-12-02] MEDS: Dexamethasone 4 MG/ML SDV IVPUSH SCH (21:44)
[2020-12-02] MEDS: REMDESIVIR 100 MG in Sodium Chloride 0.9% 100 ML IV SCH (21:44)
[2020-12-02] MEDS: Melatonin 3 MG Tab PO PRN (21:44)
[2020-12-03] MEDS: Lisinopril 20 MG Tab PO SCH (08:03)
[2020-12-03] MEDS: Aspirin 81 MG Tab.EC PO SCH (08:03)
[2020-12-03] MEDS: Enoxaparin 40 MG/0.4 ML Syringe SUBCUT SCH ×2 (08:04→20:00)
[2020-12-03] MEDS: Cholecalciferol (Vitamin D3) 25 MCG Tab PO SCH (08:04)
[2020-12-03] MEDS: Benzonatate 100 MG Cap PO PRN ×2 (09:09→20:00)
[2020-12-03] MEDS: Diltiazem 180 MG Cap.CD PO SCH (10:13)
[2020-12-03] MEDS: Doxazosin 4 MG Tab PO SCH (10:13)
--- NOTE | 2020-12-03 12:17 | PCM.PN ---
- General Info Date of Service: 12/03/20 Subjective Update: Mr. Caputo has been stable over the last 24 hours, continues to require supplemental oxygen at 2 L/min via nasal cannula. Functional Status: Reports: Tolerating Diet, Ambulating, Urinating - Review of Systems General: Reports: Weakness, Fatigue. Denies: Fever, Chills Pulmonary: Reports: Shortness of Breath, Cough. Denies: Pleuritic Chest Pain, Sputum, Hemoptysis, Wheezing Cardiovascular: Reports: Dyspnea on Exertion. Denies: Chest Pain, Palpitations, Orthopnea, PND, Edema, Lightheadedness Gastrointestinal: Reports: No Symptoms Genitourinary: Reports: No Symptoms - Patient Data Vitals - Most Recent: Last Vital Signs Temp 95.2 F L 12/03/20 07:45 Pulse 55 L 12/03/20 10:11 Resp 22 H 12/03/20 10:11 BP 139/56 L 12/03/20 10:13 Pulse Ox 91 L 12/03/20 10:11 Weight - Most Recent: 195 lb 0.017 oz I&O - Last 24 Hours: Intake & Output 12/02/20 12/03/20 12/03/20 22:59 06:59 14:59 Intake Total 100 580 Output Total 300 700 200 Balance -200 -700 380 Len Results Last 24 Hours: Microbiology 12/01/20 02:30 Gram Stain - Final Sputum - Expectorated Respiratory Culture - Final NORMAL RESPIRATORY ANDRES 2 DAYS 11/30/20 21:04 Aerobic Blood Culture - Preliminary Blood - Arm, Left NO GROWTH AFTER 2 DAYS Anaerobic Blood Culture - Preliminary NO GROWTH AFTER 2 DAYS 11/30/20 21:16 Aerobic Blood Culture - Preliminary Blood - Arm, Left NO GROWTH AFTER 2 DAYS Anaerobic Blood Culture - Preliminary NO GROWTH AFTER 2 DAYS Med Orders - Current: Current Medications Acetaminophen (Acetaminophen 325 Mg Tab) 650 mg PO Q4H PRN PRN Reason: Pain (Mild 1-3)/fever Aspirin (Aspirin 81 Mg Tab.Ec) 81 mg PO DAILY [facility] Last Admin: 12/03/20 08:03 Dose: 81 mg Documented by: Benzonatate (Benzonatate 100 Mg Cap) 100 mg PO TID PRN PRN Reason: Cough Last Admin: 12/03/20 09:09 Dose: 100 mg Documented by: Cholecalciferol (Cholecalciferol (Vitamin D3) 25 Mcg Tab) 125 mcg PO DAILY [facility] Last Admin: 12/03/20 08:04 Dose: 125 mcg Documented by: Dexamethasone (Dexamethasone 4 Mg/Ml Sdv) 6 mg IVPUSH Q24H [facility] Last Admin: 12/02/20 21:44 Dose: 6 mg Documented by: Diltiazem HCl (Diltiazem 180 Mg Cap.Cd) 360 mg PO DAILY [facility] Last Admin: 12/03/20 10:13 Dose: 360 mg Documented by: Doxazosin Mesylate (Doxazosin 4 Mg Tab) 8 mg PO DAILY [facility] Last Admin: 12/03/20 10:13 Dose: 8 mg Documented by: Enoxaparin Sodium (Enoxaparin 40 Mg/0.4 Ml Syringe) 40 mg SUBCUT Q12H [facility] Last Admin: 12/03/20 08:04 Dose: 40 mg Documented by: Guaifenesin/Dextromethorphan (Guaifenesin/Dextromethorphan 100-10 Mg/5 Ml Soln 10 Ml Cup) 10 ml PO Q4H PRN PRN Reason: Cough Remdesivir 100 mg/ Sodium (Chloride) 100 mls @ 100 mls/hr IV Q24H [facility] Stop: 12/04/20 21:59 Last Admin: 12/02/20 21:44 Dose: 100 mls/hr Documented by: Lisinopril (Lisinopril 20 Mg Tab) 40 mg PO DAILY [facility] Last Admin: 12/03/20 08:03 Dose: 40 mg Documented by: Magnesium Hydroxide (Magnesium Hydroxide 400 Mg/5 Ml Susp 30 Ml Cup) 30 ml PO Q12H PRN PRN Reason: Constipation Melatonin (Melatonin 3 Mg Tab) 9 mg PO BEDTIME PRN PRN Reason: Sleep Last Admin: 12/02/20 21:44 Dose: 9 mg Documented by: Ondansetron HCl (Ondansetron 4 Mg/2 Ml Sdv) 4 mg IV Q6H PRN PRN Reason: Nausea/Vomiting Ondansetron HCl (Ondansetron 4 Mg Tab.Dis) 4 mg PO Q6H PRN PRN Reason: Nausea able to take PO Senna/Docusate Sodium (Docusate Sodium/Sennosides 50-8.6 Mg Tab) 1 tab PO BID PRN PRN Reason: Constipation Last Admin: 12/02/20 21:44 Dose: 1 tab Documented by: Sodium Chloride (Sodium Chloride 0.9% 10 Ml Syringe) 10 ml FLUSH ASDIRECTED PRN PRN Reason: Keep Vein Open Last Admin: 11/30/20 21:26 Dose: 10 ml Documented by: Discontinued Medications Dexamethasone (Dexamethasone 4 Mg/Ml Sdv) 6 mg IVPUSH Q24H [facility] Last Admin: 12/01/20 01:41 Dose: 6 mg Documented by: Enoxaparin Sodium (Enoxaparin 40 Mg/0.4 Ml Syringe) 40 mg SUBCUT NOW ONE Stop: 12/01/20 02:01 Last Admin: 12/01/20 01:56 Dose: 40 mg Documented by: Sodium Chloride (Normal Saline) 1,000 mls @ 50 mls/hr IV ASDIRECTED [facility] Last Admin: 11/30/20 21:25 Dose: 50 mls/hr Documented by: Remdesivir 200 mg/ Sodium (Chloride) 250 mls @ 250 mls/hr IV ONETIME ONE Stop: 11/30/20 23:36 Last Admin: 12/01/20 01:51 Dose: 250 mls/hr Documented by: - Exam Quality Assessment: DVT Prophylaxis General: Alert, Oriented, Cooperative, Mild Distress Lungs: Clear to Auscultation, Normal Respiratory Effort Cardiovascular: Regular Rate, Regular Rhythm, No Murmurs GI/Abdominal Exam: Soft, Non-Tender, No Organomegaly, No Distention Extremities: Non-Tender, No Pedal Edema - Patient Data Result Diagrams: 12/02/20 04:30 12/02/20 04:30 Len Results Last 24 hrs: Microbiology 12/01/20 02:30 Gram Stain - Final Sputum - Expectorated Respiratory Culture - Final NORMAL RESPIRATORY ANDRES 2 DAYS 11/30/20 21:04 Aerobic Blood Culture - Preliminary Blood - Arm, Left NO GROWTH AFTER 2 DAYS Anaerobic Blood Culture - Preliminary NO GROWTH AFTER 2 DAYS 11/30/20 21:16 Aerobic Blood Culture - Preliminary Blood - Arm, Left NO GROWTH AFTER 2 DAYS Anaerobic Blood Culture - Preliminary NO GROWTH AFTER 2 DAYS Sepsis Event Note - Evaluation Sepsis Screening Result: Possible Sepsis Risk - Focused Exam Vital Signs: Vital Signs Temp Pulse Resp BP BP Pulse Ox 12/03/20 10:13 139/56 L 12/03/20 10:11 55 L 22 H 139/56 L 91 L 12/03/20 08:03 171/74 H 12/03/20 07:45 95.2 F L 51 L 20 171/74 H 92 L 12/03/20 06:54 93 L 12/03/20 03:00 95.0 F L 50 L 17 143/66 H 93 L 12/03/20 01:00 93 L - Problem List Review Problem List Initiated/Reviewed/Updated: Yes - My Orders Last 24 Hours: My Active Orders 12/04/20 05:00 CBC WITH AUTO DIFF [HEME] Timed COMPREHENSIVE METABOLIC PN,CMP [CHEM] Timed 12/04/20 05:11 CRP [C-REACTIVE PROTEIN] [CHEM] AM D Dimer [D-DIMER QUANTITATIVE] [COAG] AM - Plan Plan:: ASSESSMENT AND PLAN COVID-19 pneumonia-complicated by acute respiratory failure with hypoxia. Still hypoxic but respiratory status stable on 2 L. Significant desaturation with activity. -Remdesivir 200 mg x 1 now and then 100 mg for 4 days (3 of 4) -Dexamethasone 6 mg daily (day 4) -Enoxaparin 40 mg every 12 hours -Symptomatic management of cough -Labs every 2 to 3 days -Isolation precautions Hypoxic respiratory failure-secondary to COVID-19 infection -Supplemental oxygen as needed Essential hypertension-blood pressure controlled. -Continue home medications Maintenance issues - -DVT prophylaxis-enoxaparin -GI prophylaxis-not indicated -Nutrition-regular -Bergeron catheter-not indicated CODE STATUS -DNR/DNI Disposition -I anticipate discharge home after the hospital stay Primary care physician -Dr. Juanjose Mari
[2020-12-03] MEDS: REMDESIVIR 100 MG in Sodium Chloride 0.9% 100 ML IV SCH (20:00)
[2020-12-03] MEDS: Melatonin 3 MG Tab PO PRN (20:00)
[2020-12-03] MEDS: Dexamethasone 4 MG/ML SDV IVPUSH SCH (21:34)
[2020-12-04] MEDS: Diltiazem 180 MG Cap.CD PO SCH (09:55)
[2020-12-04] MEDS: Enoxaparin 40 MG/0.4 ML Syringe SUBCUT SCH ×2 (09:55→21:17)
[2020-12-04] MEDS: Cholecalciferol (Vitamin D3) 25 MCG Tab PO SCH (09:55)
[2020-12-04] MEDS: Doxazosin 4 MG Tab PO SCH (09:55)
[2020-12-04] MEDS: Aspirin 81 MG Tab.EC PO SCH (09:55)
[2020-12-04] MEDS: Lisinopril 20 MG Tab PO SCH (09:55)
--- NOTE | 2020-12-04 12:01 | PCM.PN ---
- General Info Date of Service: 12/04/20 Subjective Update: Mr. Caupto has remained stable over the past 24 hours with no significant worsening of respiratory status. Continues to require supplemental oxygen at 1- 1/2 L/min via nasal cannula. Functional Status: Reports: Tolerating Diet, Urinating - Review of Systems General: Reports: Weakness, Fatigue. Denies: Fever, Chills Pulmonary: Reports: Shortness of Breath, Cough. Denies: Pleuritic Chest Pain, Sputum, Hemoptysis, Wheezing Cardiovascular: Reports: Dyspnea on Exertion. Denies: Chest Pain, Palpitations, Orthopnea, PND, Edema, Lightheadedness Gastrointestinal: Reports: No Symptoms Genitourinary: Reports: No Symptoms - Patient Data Vitals - Most Recent: Last Vital Signs Temp 97.5 F 12/04/20 07:51 Pulse 55 L 12/04/20 07:51 Resp 20 12/04/20 07:51 BP 165/74 H 12/04/20 09:55 Pulse Ox 93 L 12/04/20 11:00 Weight - Most Recent: 195 lb 0.017 oz I&O - Last 24 Hours: Intake & Output 12/03/20 12/04/20 12/04/20 22:59 06:59 14:59 Intake Total 560 500 Output Total 300 600 600 Balance 260 -600 -100 Lab Results Last 24 Hours: Laboratory Results - last 24 hr 12/04/20 12/04/20 12/04/20 Range/Units 04:20 04:20 04:20 WBC 17.1 H (4.5-11.0) K/uL RBC 4.09 L (4.30-5.90) M/uL Hgb 12.5 (12.0-15.0) g/dL Hct 37.3 L (40.0-54.0) % MCV 91 (80-98) fL MCH 31 (27-31) pg MCHC 34 (32-36) % Plt Count 420 H (150-400) K/uL Neut % (Auto) 88.6 H (36-66) % Lymph % (Auto) 6.1 L (24-44) % [place] % (Auto) 5.1 (2-6) % Eos % (Auto) 0.0 L (2-4) % Baso % (Auto) 0.2 (0-1) % D-Dimer, Quantitative 2073.32 H (0.0-500.0) ng/mL Sodium 140 (140-148) mmol/L Potassium 4.1 (3.6-5.2) mmol/L Chloride 106 (100-108) mmol/L Carbon Dioxide 20 L (21-32) mmol/L Anion Gap 18.1 H (5.0-14.0) mmol/L BUN 29 H (7-18) mg/dL Creatinine 0.9 (0.8-1.3) mg/dL Est Cr Clr Drug Dosing 68.60 mL/min Estimated GFR (MDRD) > 60 (>60) Glucose 165 H (74-106) mg/dL Calcium 7.8 L (8.5-10.1) mg/dL Total Bilirubin 0.3 (0.2-1.0) mg/dL AST 21 (15-37) U/L ALT 32 (12-78) U/L Alkaline Phosphatase 76 (46-116) U/L C-Reactive Protein (0.0-0.3) mg/dL Total Protein 5.4 L (6.4-8.2) g/dL Albumin 2.2 L (3.4-5.0) g/dL Globulin 3.2 (2.3-3.5) g/dL Albumin/Globulin Ratio 0.7 L (1.2-2.2) 12/04/20 Range/Units 04:20 WBC (4.5-11.0) K/uL RBC (4.30-5.90) M/uL Hgb (12.0-15.0) g/dL Hct (40.0-54.0) % MCV (80-98) fL MCH (27-31) pg MCHC (32-36) % Plt Count (150-400) K/uL Neut % (Auto) (36-66) % Lymph % (Auto) (24-44) % [place] % (Auto) (2-6) % Eos % (Auto) (2-4) % Baso % (Auto) (0-1) % D-Dimer, Quantitative (0.0-500.0) ng/mL Sodium (140-148) mmol/L Potassium (3.6-5.2) mmol/L Chloride (100-108) mmol/L Carbon Dioxide (21-32) mmol/L Anion Gap (5.0-14.0) mmol/L BUN (7-18) mg/dL Creatinine (0.8-1.3) mg/dL Est Cr Clr Drug Dosing mL/min Estimated GFR (MDRD) (>60) Glucose (74-106) mg/dL Calcium (8.5-10.1) mg/dL Total Bilirubin (0.2-1.0) mg/dL AST (15-37) U/L ALT (12-78) U/L Alkaline Phosphatase (46-116) U/L C-Reactive Protein 0.23 (0.0-0.3) mg/dL Total Protein (6.4-8.2) g/dL Albumin (3.4-5.0) g/dL Globulin (2.3-3.5) g/dL Albumin/Globulin Ratio (1.2-2.2) Len Results Last 24 Hours: Microbiology 11/30/20 21:16 Aerobic Blood Culture - Preliminary Blood - Arm, Left NO GROWTH AFTER 3 DAYS Anaerobic Blood Culture - Preliminary NO GROWTH AFTER 3 DAYS 11/30/20 21:04 Aerobic Blood Culture - Preliminary Blood - Arm, Left NO GROWTH AFTER 3 DAYS Anaerobic Blood Culture - Preliminary NO GROWTH AFTER 3 DAYS Med Orders - Current: Current Medications Acetaminophen (Acetaminophen 325 Mg Tab) 650 mg PO Q4H PRN PRN Reason: Pain (Mild 1-3)/fever Aspirin (Aspirin 81 Mg Tab.Ec) 81 mg PO DAILY [facility] Last Admin: 12/04/20 09:55 Dose: 81 mg Documented by: Benzonatate (Benzonatate 100 Mg Cap) 100 mg PO TID PRN PRN Reason: Cough Last Admin: 12/03/20 20:00 Dose: 100 mg Documented by: Cholecalciferol (Cholecalciferol (Vitamin D3) 25 Mcg Tab) 125 mcg PO DAILY [facility] Last Admin: 12/04/20 09:55 Dose: 125 mcg Documented by: Dexamethasone (Dexamethasone 4 Mg/Ml Sdv) 6 mg IVPUSH Q24H [facility] Last Admin: 12/03/20 21:34 Dose: 6 mg Documented by: Diltiazem HCl (Diltiazem 180 Mg Cap.Cd) 360 mg PO DAILY [facility] Last Admin: 12/04/20 09:55 Dose: 360 mg Documented by: Doxazosin Mesylate (Doxazosin 4 Mg Tab) 8 mg PO DAILY [facility] Last Admin: 12/04/20 09:55 Dose: 8 mg Documented by: Enoxaparin Sodium (Enoxaparin 40 Mg/0.4 Ml Syringe) 40 mg SUBCUT Q12H [facility] Last Admin: 12/04/20 09:55 Dose: 40 mg Documented by: Guaifenesin/Dextromethorphan (Guaifenesin/Dextromethorphan 100-10 Mg/5 Ml Soln 10 Ml Cup) 10 ml PO Q4H PRN PRN Reason: Cough Remdesivir 100 mg/ Sodium (Chloride) 100 mls @ 100 mls/hr IV Q24H [facility] Stop: 12/04/20 21:59 Last Admin: 12/03/20 20:00 Dose: 100 mls/hr Documented by: Lisinopril (Lisinopril 20 Mg Tab) 40 mg PO DAILY [facility] Last Admin: 12/04/20 09:55 Dose: 40 mg Documented by: Magnesium Hydroxide (Magnesium Hydroxide 400 Mg/5 Ml Susp 30 Ml Cup) 30 ml PO Q12H PRN PRN Reason: Constipation Melatonin (Melatonin 3 Mg Tab) 9 mg PO BEDTIME PRN PRN Reason: Sleep Last Admin: 12/03/20 20:00 Dose: 9 mg Documented by: Ondansetron HCl (Ondansetron 4 Mg/2 Ml Sdv) 4 mg IV Q6H PRN PRN Reason: Nausea/Vomiting Ondansetron HCl (Ondansetron 4 Mg Tab.Dis) 4 mg PO Q6H PRN PRN Reason: Nausea able to take PO Senna/Docusate Sodium (Docusate Sodium/Sennosides 50-8.6 Mg Tab) 1 tab PO BID PRN PRN Reason: Constipation Last Admin: 12/02/20 21:44 Dose: 1 tab Documented by: Sodium Chloride (Sodium Chloride 0.9% 10 Ml Syringe) 10 ml FLUSH ASDIRECTED PRN PRN Reason: Keep Vein Open Last Admin: 11/30/20 21:26 Dose: 10 ml Documented by: Discontinued Medications Dexamethasone (Dexamethasone 4 Mg/Ml Sdv) 6 mg IVPUSH Q24H [facility] Last Admin: 12/01/20 01:41 Dose: 6 mg Documented by: Enoxaparin Sodium (Enoxaparin 40 Mg/0.4 Ml Syringe) 40 mg SUBCUT NOW ONE Stop: 12/01/20 02:01 Last Admin: 12/01/20 01:56 Dose: 40 mg Documented by: Sodium Chloride (Normal Saline) 1,000 mls @ 50 mls/hr IV ASDIRECTED [facility] Last Admin: 11/30/20 21:25 Dose: 50 mls/hr Documented by: Remdesivir 200 mg/ Sodium (Chloride) 250 mls @ 250 mls/hr IV ONETIME ONE Stop: 11/30/20 23:36 Last Admin: 12/01/20 01:51 Dose: 250 mls/hr Documented by: - Exam Quality Assessment: Supplemental Oxygen, DVT Prophylaxis General: Alert, Oriented, Cooperative, Moderate Distress Lungs: Normal Respiratory Effort, Crackles. No: Rales, Rhonchi, Wheezing Cardiovascular: Regular Rate, Regular Rhythm, No Murmurs GI/Abdominal Exam: Soft, Non-Tender, No Organomegaly, No Distention Extremities: Non-Tender, No Pedal Edema - Patient Data Lab Results Last 24 hrs: Laboratory Results - last 24 hr 12/04/20 12/04/20 12/04/20 Range/Units 04:20 04:20 04:20 WBC 17.1 H (4.5-11.0) K/uL RBC 4.09 L (4.30-5.90) M/uL Hgb 12.5 (12.0-15.0) g/dL Hct 37.3 L (40.0-54.0) % MCV 91 (80-98) fL MCH 31 (27-31) pg MCHC 34 (32-36) % Plt Count 420 H (150-400) K/uL Neut % (Auto) 88.6 H (36-66) % Lymph % (Auto) 6.1 L (24-44) % [place] % (Auto) 5.1 (2-6) % Eos % (Auto) 0.0 L (2-4) % Baso % (Auto) 0.2 (0-1) % D-Dimer, Quantitative 2073.32 H (0.0-500.0) ng/mL Sodium 140 (140-148) mmol/L Potassium 4.1 (3.6-5.2) mmol/L Chloride 106 (100-108) mmol/L Carbon Dioxide 20 L (21-32) mmol/L Anion Gap 18.1 H (5.0-14.0) mmol/L BUN 29 H (7-18) mg/dL Creatinine 0.9 (0.8-1.3) mg/dL Est Cr Clr Drug Dosing 68.60 mL/min Estimated GFR (MDRD) > 60 (>60) Glucose 165 H (74-106) mg/dL Calcium 7.8 L (8.5-10.1) mg/dL Total Bilirubin 0.3 (0.2-1.0) mg/dL AST 21 (15-37) U/L ALT 32 (12-78) U/L Alkaline Phosphatase 76 (46-116) U/L C-Reactive Protein (0.0-0.3) mg/dL Total Protein 5.4 L (6.4-8.2) g/dL Albumin 2.2 L (3.4-5.0) g/dL Globulin 3.2 (2.3-3.5) g/dL Albumin/Globulin Ratio 0.7 L (1.2-2.2) 12/04/20 Range/Units 04:20 WBC (4.5-11.0) K/uL RBC (4.30-5.90) M/uL Hgb (12.0-15.0) g/dL Hct (40.0-54.0) % MCV (80-98) fL MCH (27-31) pg MCHC (32-36) % Plt Count (150-400) K/uL Neut % (Auto) (36-66) % Lymph % (Auto) (24-44) % [place] % (Auto) (2-6) % Eos % (Auto) (2-4) % Baso % (Auto) (0-1) % D-Dimer, Quantitative (0.0-500.0) ng/mL Sodium (140-148) mmol/L Potassium (3.6-5.2) mmol/L Chloride (100-108) mmol/L Carbon Dioxide (21-32) mmol/L Anion Gap (5.0-14.0) mmol/L BUN (7-18) mg/dL Creatinine (0.8-1.3) mg/dL Est Cr Clr Drug Dosing mL/min Estimated GFR (MDRD) (>60) Glucose (74-106) mg/dL Calcium (8.5-10.1) mg/dL Total Bilirubin (0.2-1.0) mg/dL AST (15-37) U/L ALT (12-78) U/L Alkaline Phosphatase (46-116) U/L C-Reactive Protein 0.23 (0.0-0.3) mg/dL Total Protein (6.4-8.2) g/dL Albumin (3.4-5.0) g/dL Globulin (2.3-3.5) g/dL Albumin/Globulin Ratio (1.2-2.2) Result Diagrams: 12/04/20 04:20 12/04/20 04:20 Len Results Last 24 hrs: Microbiology 11/30/20 21:16 Aerobic Blood Culture - Preliminary Blood - Arm, Left NO GROWTH AFTER 3 DAYS Anaerobic Blood Culture - Preliminary NO GROWTH AFTER 3 DAYS 11/30/20 21:04 Aerobic Blood Culture - Preliminary Blood - Arm, Left NO GROWTH AFTER 3 DAYS Anaerobic Blood Culture - Preliminary NO GROWTH AFTER 3 DAYS Sepsis Event Note - Evaluation Sepsis Screening Result: Possible Sepsis Risk - Focused Exam Vital Signs: Vital Signs Temp Pulse Resp BP BP Pulse Ox 12/04/20 11:00 93 L 12/04/20 09:55 159/64 H 12/04/20 07:51 97.5 F 55 L 20 169/74 H 94 L 12/04/20 03:02 98.2 F 52 L 18 158/80 H 94 L 12/04/20 00:33 95 - Problem List Review Problem List Initiated/Reviewed/Updated: Yes - Plan Plan:: ASSESSMENT AND PLAN COVID-19 pneumonia-complicated by acute respiratory failure with hypoxia. Still hypoxic but respiratory status stable on 1.5 L. Significant desaturation with activity. -Remdesivir 200 mg and then 100 mg for 4 days (4 of 4) -Dexamethasone 6 mg daily (day 5) -Enoxaparin 40 mg every 12 hours -Symptomatic management of cough -Labs every 2 to 3 days -Isolation precautions Hypoxic respiratory failure-secondary to COVID-19 infection -Supplemental oxygen as needed Essential hypertension-blood pressure controlled. -Continue home medications Maintenance issues - -DVT prophylaxis-enoxaparin -GI prophylaxis-not indicated -Nutrition-regular -Bergeron catheter-not indicated CODE STATUS -DNR/DNI Disposition -I anticipate discharge home after the hospital stay Primary care physician -Dr. Juanjose Mari
[2020-12-04] MEDS: Benzonatate 100 MG Cap PO PRN (13:01)
[2020-12-04] MEDS: REMDESIVIR 100 MG in Sodium Chloride 0.9% 100 ML IV SCH (21:16)
[2020-12-04] MEDS: Melatonin 3 MG Tab PO PRN (21:16)
[2020-12-04] MEDS: Dexamethasone 4 MG/ML SDV IVPUSH SCH (21:17)
[2020-12-05] MEDS: Aspirin 81 MG Tab.EC PO SCH (09:06)
[2020-12-05] MEDS: Enoxaparin 40 MG/0.4 ML Syringe SUBCUT SCH ×2 (09:06→21:16)
[2020-12-05] MEDS: Doxazosin 4 MG Tab PO SCH (09:06)
[2020-12-05] MEDS: Lisinopril 20 MG Tab PO SCH (09:08)
[2020-12-05] MEDS: Cholecalciferol (Vitamin D3) 25 MCG Tab PO SCH (09:09)
[2020-12-05] MEDS: Diltiazem 180 MG Cap.CD PO SCH (09:09)
--- NOTE | 2020-12-05 11:01 | PCM.PN ---
- General Info Date of Service: 12/05/20 Subjective Update: Mr. Caputo has remained stable over the last 24 hours. Continues to require supplemental oxygen at 2 L/min via nasal cannula and desaturates with fairly minimal activity becoming short of breath and hypoxic. Functional Status: Reports: Tolerating Diet, Urinating - Review of Systems General: Reports: Weakness, Fatigue. Denies: Fever, Chills Pulmonary: Reports: Shortness of Breath, Cough. Denies: Pleuritic Chest Pain, Sputum, Hemoptysis, Wheezing Cardiovascular: Reports: Dyspnea on Exertion. Denies: Chest Pain, Palpitations, Orthopnea, PND, Edema, Lightheadedness Gastrointestinal: Reports: No Symptoms Genitourinary: Reports: No Symptoms - Patient Data Vitals - Most Recent: Last Vital Signs Temp 97.5 F 12/05/20 08:20 Pulse 58 L 12/05/20 08:20 Resp 16 12/05/20 08:20 BP 143/79 H 12/05/20 09:08 Pulse Ox 92 L 12/05/20 08:20 Weight - Most Recent: 195 lb 0.017 oz I&O - Last 24 Hours: Intake & Output 12/04/20 12/05/20 12/05/20 22:59 06:59 14:59 Intake Total 900 240 Output Total 650 800 300 Balance 250 -560 -300 Len Results Last 24 Hours: Microbiology 11/30/20 21:04 Aerobic Blood Culture - Preliminary Blood - Arm, Left NO GROWTH AFTER 4 DAYS Anaerobic Blood Culture - Preliminary NO GROWTH AFTER 4 DAYS 11/30/20 21:16 Aerobic Blood Culture - Preliminary Blood - Arm, Left NO GROWTH AFTER 4 DAYS Anaerobic Blood Culture - Preliminary NO GROWTH AFTER 4 DAYS Med Orders - Current: Current Medications Acetaminophen (Acetaminophen 325 Mg Tab) 650 mg PO Q4H PRN PRN Reason: Pain (Mild 1-3)/fever Aspirin (Aspirin 81 Mg Tab.Ec) 81 mg PO DAILY [facility] Last Admin: 12/05/20 09:06 Dose: 81 mg Documented by: Benzonatate (Benzonatate 100 Mg Cap) 100 mg PO TID PRN PRN Reason: Cough Last Admin: 12/04/20 13:01 Dose: 100 mg Documented by: Cholecalciferol (Cholecalciferol (Vitamin D3) 25 Mcg Tab) 125 mcg PO DAILY [facility] Last Admin: 12/05/20 09:09 Dose: 125 mcg Documented by: Dexamethasone (Dexamethasone 4 Mg/Ml Sdv) 6 mg IVPUSH Q24H [facility] Last Admin: 12/04/20 21:17 Dose: 6 mg Documented by: Diltiazem HCl (Diltiazem 180 Mg Cap.Cd) 360 mg PO DAILY [facility] Last Admin: 12/05/20 09:09 Dose: 360 mg Documented by: Doxazosin Mesylate (Doxazosin 4 Mg Tab) 8 mg PO DAILY [facility] Last Admin: 12/05/20 09:06 Dose: 8 mg Documented by: Enoxaparin Sodium (Enoxaparin 40 Mg/0.4 Ml Syringe) 40 mg SUBCUT Q12H [facility] Last Admin: 12/05/20 09:06 Dose: 40 mg Documented by: Guaifenesin/Dextromethorphan (Guaifenesin/Dextromethorphan 100-10 Mg/5 Ml Soln 10 Ml Cup) 10 ml PO Q4H PRN PRN Reason: Cough Lisinopril (Lisinopril 20 Mg Tab) 40 mg PO DAILY [facility] Last Admin: 12/05/20 09:08 Dose: 40 mg Documented by: Magnesium Hydroxide (Magnesium Hydroxide 400 Mg/5 Ml Susp 30 Ml Cup) 30 ml PO Q12H PRN PRN Reason: Constipation Melatonin (Melatonin 3 Mg Tab) 9 mg PO BEDTIME PRN PRN Reason: Sleep Last Admin: 12/04/20 21:16 Dose: 9 mg Documented by: Ondansetron HCl (Ondansetron 4 Mg/2 Ml Sdv) 4 mg IV Q6H PRN PRN Reason: Nausea/Vomiting Ondansetron HCl (Ondansetron 4 Mg Tab.Dis) 4 mg PO Q6H PRN PRN Reason: Nausea able to take PO Senna/Docusate Sodium (Docusate Sodium/Sennosides 50-8.6 Mg Tab) 1 tab PO BID PRN PRN Reason: Constipation Last Admin: 12/02/20 21:44 Dose: 1 tab Documented by: Sodium Chloride (Sodium Chloride 0.9% 10 Ml Syringe) 10 ml FLUSH ASDIRECTED PRN PRN Reason: Keep Vein Open Last Admin: 11/30/20 21:26 Dose: 10 ml Documented by: Discontinued Medications Dexamethasone (Dexamethasone 4 Mg/Ml Sdv) 6 mg IVPUSH Q24H [facility] Last Admin: 12/01/20 01:41 Dose: 6 mg Documented by: Enoxaparin Sodium (Enoxaparin 40 Mg/0.4 Ml Syringe) 40 mg SUBCUT NOW ONE Stop: 12/01/20 02:01 Last Admin: 12/01/20 01:56 Dose: 40 mg Documented by: Sodium Chloride (Normal Saline) 1,000 mls @ 50 mls/hr IV ASDIRECTED [facility] Last Admin: 11/30/20 21:25 Dose: 50 mls/hr Documented by: Remdesivir 200 mg/ Sodium (Chloride) 250 mls @ 250 mls/hr IV ONETIME ONE Stop: 11/30/20 23:36 Last Admin: 12/01/20 01:51 Dose: 250 mls/hr Documented by: Remdesivir 100 mg/ Sodium (Chloride) 100 mls @ 100 mls/hr IV Q24H [facility] Stop: 12/04/20 21:59 Last Admin: 12/04/20 21:16 Dose: 100 mls/hr Documented by: - Exam Quality Assessment: Supplemental Oxygen, DVT Prophylaxis General: Alert, Oriented, Cooperative, Mild Distress Lungs: Clear to Auscultation, Normal Respiratory Effort Cardiovascular: Regular Rate, Regular Rhythm, No Murmurs GI/Abdominal Exam: Soft, Non-Tender, No Organomegaly, No Distention Extremities: Non-Tender, No Pedal Edema - Patient Data Result Diagrams: 12/04/20 04:20 12/04/20 04:20 Len Results Last 24 hrs: Microbiology 11/30/20 21:04 Aerobic Blood Culture - Preliminary Blood - Arm, Left NO GROWTH AFTER 4 DAYS Anaerobic Blood Culture - Preliminary NO GROWTH AFTER 4 DAYS 11/30/20 21:16 Aerobic Blood Culture - Preliminary Blood - Arm, Left NO GROWTH AFTER 4 DAYS Anaerobic Blood Culture - Preliminary NO GROWTH AFTER 4 DAYS Sepsis Event Note - Evaluation Sepsis Screening Result: Possible Sepsis Risk - Focused Exam Vital Signs: Vital Signs Temp Temp Pulse Resp BP BP Pulse Ox 12/05/20 09:08 143/79 H 12/05/20 09:06 143/79 H 12/05/20 08:20 97.5 F 58 L 16 149/76 H 92 L 12/05/20 07:00 92 L 12/05/20 04:41 97.5 F 57 L 16 163/70 H 93 L 12/05/20 00:16 95 12/04/20 23:23 97.5 F 54 L 16 162/73 H 95 - Problem List Review Problem List Initiated/Reviewed/Updated: Yes - Plan Plan:: ASSESSMENT AND PLAN COVID-19 pneumonia-complicated by acute respiratory failure with hypoxia. Still hypoxic but respiratory status stable on 2 L. Significant desaturation with activity. -Remdesivir completed -Dexamethasone 6 mg daily (day 6) -Enoxaparin 40 mg every 12 hours -Labs every 2 to 3 days -Isolation precautions Hypoxic respiratory failure-secondary to COVID-19 infection -Supplemental oxygen as needed Essential hypertension-blood pressure controlled. -Continue home medications Maintenance issues - -DVT prophylaxis-enoxaparin -GI prophylaxis-not indicated -Nutrition-regular -Bergeron catheter-not indicated CODE STATUS -DNR/DNI Disposition -I anticipate discharge home after the hospital stay Primary care physician -Dr. Juanjose Mari
[2020-12-05] MEDS: Dexamethasone 4 MG/ML SDV IVPUSH SCH (21:15)
[2020-12-05] MEDS: Melatonin 3 MG Tab PO PRN (21:16)
[2020-12-06] MEDS: Enoxaparin 40 MG/0.4 ML Syringe SUBCUT SCH ×2 (10:07→20:56)
[2020-12-06] MEDS: Cholecalciferol (Vitamin D3) 25 MCG Tab PO SCH (10:08)
[2020-12-06] MEDS: Doxazosin 4 MG Tab PO SCH (10:09)
[2020-12-06] MEDS: Diltiazem 180 MG Cap.CD PO SCH (10:09)
[2020-12-06] MEDS: Lisinopril 20 MG Tab PO SCH (10:10)
[2020-12-06] MEDS: Aspirin 81 MG Tab.EC PO SCH (10:10)
--- NOTE | 2020-12-06 10:50 | PCM.PN ---
- General Info Date of Service: 12/06/20 Subjective Update: Mr. Caputo has continued to show slow improvement from COVID-19 infection. Continues to require supplemental oxygen at 2 L/min via nasal cannula, but is less short of breath with activity. Functional Status: Reports: Tolerating Diet, Ambulating, Urinating - Review of Systems General: Reports: Weakness, Fatigue. Denies: Fever, Chills Pulmonary: Reports: Shortness of Breath. Denies: Pleuritic Chest Pain, Cough, Sputum, Hemoptysis, Wheezing Cardiovascular: Reports: Dyspnea on Exertion. Denies: Chest Pain, Palpitations, Orthopnea, PND, Edema, Lightheadedness Gastrointestinal: Reports: No Symptoms Genitourinary: Reports: No Symptoms - Patient Data Vitals - Most Recent: Last Vital Signs Temp 97.5 F 12/06/20 07:00 Pulse 63 12/06/20 07:00 Resp 18 12/06/20 07:00 BP 142/66 H 12/06/20 10:10 Pulse Ox 93 L 12/06/20 07:00 Weight - Most Recent: 195 lb 0.017 oz I&O - Last 24 Hours: Intake & Output 12/05/20 12/06/20 12/06/20 22:59 06:59 14:59 Intake Total 240 350 360 Output Total 900 500 400 Balance -660 -150 -40 Lab Results Last 24 Hours: Laboratory Results - last 24 hr 12/06/20 12/06/20 12/06/20 Range/Units 04:55 04:55 04:55 WBC 16.6 H (4.5-11.0) K/uL RBC 4.23 L (4.30-5.90) M/uL Hgb 13.5 (12.0-15.0) g/dL Hct 39.3 L (40.0-54.0) % MCV 93 (80-98) fL MCH 32 H (27-31) pg MCHC 34 (32-36) % Plt Count 442 H (150-400) K/uL Add Manual Diff Yes Neutrophils % (Manual) 92 H (36-66) % Band Neutrophils % 2 L (5-11) % Lymphocytes % (Manual) 2 L (24-44) % Monocytes % (Manual) 4 (2-6) % D-Dimer, Quantitative 1304.38 H (0.0-500.0) ng/mL Sodium 138 L (140-148) mmol/L Potassium 4.2 (3.6-5.2) mmol/L Chloride 104 (100-108) mmol/L Carbon Dioxide 21 (21-32) mmol/L Anion Gap 17.2 H (5.0-14.0) mmol/L BUN 30 H (7-18) mg/dL Creatinine 1.0 (0.8-1.3) mg/dL Est Cr Clr Drug Dosing 61.74 mL/min Estimated GFR (MDRD) > 60 (>60) Glucose 159 H (74-106) mg/dL Calcium 7.9 L (8.5-10.1) mg/dL Total Bilirubin 0.5 D (0.2-1.0) mg/dL AST 15 (15-37) U/L ALT 28 (12-78) U/L Alkaline Phosphatase 73 (46-116) U/L C-Reactive Protein (0.0-0.3) mg/dL Total Protein 5.6 L (6.4-8.2) g/dL Albumin 2.3 L (3.4-5.0) g/dL Globulin 3.3 (2.3-3.5) g/dL Albumin/Globulin Ratio 0.7 L (1.2-2.2) 12/06/20 Range/Units 04:55 WBC (4.5-11.0) K/uL RBC (4.30-5.90) M/uL Hgb (12.0-15.0) g/dL Hct (40.0-54.0) % MCV (80-98) fL MCH (27-31) pg MCHC (32-36) % Plt Count (150-400) K/uL Add Manual Diff Neutrophils % (Manual) (36-66) % Band Neutrophils % (5-11) % Lymphocytes % (Manual) (24-44) % Monocytes % (Manual) (2-6) % D-Dimer, Quantitative (0.0-500.0) ng/mL Sodium (140-148) mmol/L Potassium (3.6-5.2) mmol/L Chloride (100-108) mmol/L Carbon Dioxide (21-32) mmol/L Anion Gap (5.0-14.0) mmol/L BUN (7-18) mg/dL Creatinine (0.8-1.3) mg/dL Est Cr Clr Drug Dosing mL/min Estimated GFR (MDRD) (>60) Glucose (74-106) mg/dL Calcium (8.5-10.1) mg/dL Total Bilirubin (0.2-1.0) mg/dL AST (15-37) U/L ALT (12-78) U/L Alkaline Phosphatase (46-116) U/L C-Reactive Protein 0.10 (0.0-0.3) mg/dL Total Protein (6.4-8.2) g/dL Albumin (3.4-5.0) g/dL Globulin (2.3-3.5) g/dL Albumin/Globulin Ratio (1.2-2.2) Len Results Last 24 Hours: Microbiology 11/30/20 21:04 Aerobic Blood Culture - Final Blood - Arm, Left NO GROWTH AFTER 5 DAYS Anaerobic Blood Culture - Final NO GROWTH AFTER 5 DAYS 11/30/20 21:16 Aerobic Blood Culture - Final Blood - Arm, Left NO GROWTH AFTER 5 DAYS Anaerobic Blood Culture - Final NO GROWTH AFTER 5 DAYS Med Orders - Current: Current Medications Acetaminophen (Acetaminophen 325 Mg Tab) 650 mg PO Q4H PRN PRN Reason: Pain (Mild 1-3)/fever Aspirin (Aspirin 81 Mg Tab.Ec) 81 mg PO DAILY [facility] Last Admin: 12/06/20 10:10 Dose: 81 mg Documented by: Benzonatate (Benzonatate 100 Mg Cap) 100 mg PO TID PRN PRN Reason: Cough Last Admin: 12/04/20 13:01 Dose: 100 mg Documented by: Cholecalciferol (Cholecalciferol (Vitamin D3) 25 Mcg Tab) 125 mcg PO DAILY [facility] Last Admin: 12/06/20 10:08 Dose: 125 mcg Documented by: Dexamethasone (Dexamethasone 4 Mg/Ml Sdv) 6 mg IVPUSH Q24H [facility] Last Admin: 12/05/20 21:15 Dose: 6 mg Documented by: Diltiazem HCl (Diltiazem 180 Mg Cap.Cd) 360 mg PO DAILY [facility] Last Admin: 12/06/20 10:09 Dose: 360 mg Documented by: Doxazosin Mesylate (Doxazosin 4 Mg Tab) 8 mg PO DAILY [facility] Last Admin: 12/06/20 10:09 Dose: 8 mg Documented by: Enoxaparin Sodium (Enoxaparin 40 Mg/0.4 Ml Syringe) 40 mg SUBCUT Q12H [facility] Last Admin: 12/06/20 10:07 Dose: 40 mg Documented by: Guaifenesin/Dextromethorphan (Guaifenesin/Dextromethorphan 100-10 Mg/5 Ml Soln 10 Ml Cup) 10 ml PO Q4H PRN PRN Reason: Cough Lisinopril (Lisinopril 20 Mg Tab) 40 mg PO DAILY [facility] Last Admin: 12/06/20 10:10 Dose: 40 mg Documented by: Magnesium Hydroxide (Magnesium Hydroxide 400 Mg/5 Ml Susp 30 Ml Cup) 30 ml PO Q12H PRN PRN Reason: Constipation Melatonin (Melatonin 3 Mg Tab) 9 mg PO BEDTIME PRN PRN Reason: Sleep Last Admin: 12/05/20 21:16 Dose: 9 mg Documented by: Ondansetron HCl (Ondansetron 4 Mg/2 Ml Sdv) 4 mg IV Q6H PRN PRN Reason: Nausea/Vomiting Ondansetron HCl (Ondansetron 4 Mg Tab.Dis) 4 mg PO Q6H PRN PRN Reason: Nausea able to take PO Senna/Docusate Sodium (Docusate Sodium/Sennosides 50-8.6 Mg Tab) 1 tab PO BID PRN PRN Reason: Constipation Last Admin: 12/02/20 21:44 Dose: 1 tab Documented by: Sodium Chloride (Sodium Chloride 0.9% 10 Ml Syringe) 10 ml FLUSH ASDIRECTED PRN PRN Reason: Keep Vein Open Last Admin: 11/30/20 21:26 Dose: 10 ml Documented by: Discontinued Medications Dexamethasone (Dexamethasone 4 Mg/Ml Sdv) 6 mg IVPUSH Q24H [facility] Last Admin: 12/01/20 01:41 Dose: 6 mg Documented by: Enoxaparin Sodium (Enoxaparin 40 Mg/0.4 Ml Syringe) 40 mg SUBCUT NOW ONE Stop: 12/01/20 02:01 Last Admin: 12/01/20 01:56 Dose: 40 mg Documented by: Sodium Chloride (Normal Saline) 1,000 mls @ 50 mls/hr IV ASDIRECTED [facility] Last Admin: 11/30/20 21:25 Dose: 50 mls/hr Documented by: Remdesivir 200 mg/ Sodium (Chloride) 250 mls @ 250 mls/hr IV ONETIME ONE Stop: 11/30/20 23:36 Last Admin: 12/01/20 01:51 Dose: 250 mls/hr Documented by: Remdesivir 100 mg/ Sodium (Chloride) 100 mls @ 100 mls/hr IV Q24H [facility] Stop: 12/04/20 21:59 Last Admin: 12/04/20 21:16 Dose: 100 mls/hr Documented by: - Exam Quality Assessment: Supplemental Oxygen, DVT Prophylaxis General: Alert, Oriented, Cooperative, Mild Distress Lungs: Clear to Auscultation, Normal Respiratory Effort Cardiovascular: Regular Rate, Regular Rhythm, No Murmurs GI/Abdominal Exam: Soft, Non-Tender, No Organomegaly, No Distention Extremities: Non-Tender, No Pedal Edema - Patient Data Lab Results Last 24 hrs: Laboratory Results - last 24 hr 12/06/20 12/06/20 12/06/20 Range/Units 04:55 04:55 04:55 WBC 16.6 H (4.5-11.0) K/uL RBC 4.23 L (4.30-5.90) M/uL Hgb 13.5 (12.0-15.0) g/dL Hct 39.3 L (40.0-54.0) % MCV 93 (80-98) fL MCH 32 H (27-31) pg MCHC 34 (32-36) % Plt Count 442 H (150-400) K/uL Add Manual Diff Yes Neutrophils % (Manual) 92 H (36-66) % Band Neutrophils % 2 L (5-11) % Lymphocytes % (Manual) 2 L (24-44) % Monocytes % (Manual) 4 (2-6) % D-Dimer, Quantitative 1304.38 H (0.0-500.0) ng/mL Sodium 138 L (140-148) mmol/L Potassium 4.2 (3.6-5.2) mmol/L Chloride 104 (100-108) mmol/L Carbon Dioxide 21 (21-32) mmol/L Anion Gap 17.2 H (5.0-14.0) mmol/L BUN 30 H (7-18) mg/dL Creatinine 1.0 (0.8-1.3) mg/dL Est Cr Clr Drug Dosing 61.74 mL/min Estimated GFR (MDRD) > 60 (>60) Glucose 159 H (74-106) mg/dL Calcium 7.9 L (8.5-10.1) mg/dL Total Bilirubin 0.5 D (0.2-1.0) mg/dL AST 15 (15-37) U/L ALT 28 (12-78) U/L Alkaline Phosphatase 73 (46-116) U/L C-Reactive Protein (0.0-0.3) mg/dL Total Protein 5.6 L (6.4-8.2) g/dL Albumin 2.3 L (3.4-5.0) g/dL Globulin 3.3 (2.3-3.5) g/dL Albumin/Globulin Ratio 0.7 L (1.2-2.2) 12/06/20 Range/Units 04:55 WBC (4.5-11.0) K/uL RBC (4.30-5.90) M/uL Hgb (12.0-15.0) g/dL Hct (40.0-54.0) % MCV (80-98) fL MCH (27-31) pg MCHC (32-36) % Plt Count (150-400) K/uL Add Manual Diff Neutrophils % (Manual) (36-66) % Band Neutrophils % (5-11) % Lymphocytes % (Manual) (24-44) % Monocytes % (Manual) (2-6) % D-Dimer, Quantitative (0.0-500.0) ng/mL Sodium (140-148) mmol/L Potassium (3.6-5.2) mmol/L Chloride (100-108) mmol/L Carbon Dioxide (21-32) mmol/L Anion Gap (5.0-14.0) mmol/L BUN (7-18) mg/dL Creatinine (0.8-1.3) mg/dL Est Cr Clr Drug Dosing mL/min Estimated GFR (MDRD) (>60) Glucose (74-106) mg/dL Calcium (8.5-10.1) mg/dL Total Bilirubin (0.2-1.0) mg/dL AST (15-37) U/L ALT (12-78) U/L Alkaline Phosphatase (46-116) U/L C-Reactive Protein 0.10 (0.0-0.3) mg/dL Total Protein (6.4-8.2) g/dL Albumin (3.4-5.0) g/dL Globulin (2.3-3.5) g/dL Albumin/Globulin Ratio (1.2-2.2) Result Diagrams: 12/06/20 04:55 12/06/20 04:55 Len Results Last 24 hrs: Microbiology 11/30/20 21:04 Aerobic Blood Culture - Final Blood - Arm, Left NO GROWTH AFTER 5 DAYS Anaerobic Blood Culture - Final NO GROWTH AFTER 5 DAYS 11/30/20 21:16 Aerobic Blood Culture - Final Blood - Arm, Left NO GROWTH AFTER 5 DAYS Anaerobic Blood Culture - Final NO GROWTH AFTER 5 DAYS Sepsis Event Note - Evaluation Sepsis Screening Result: Possible Sepsis Risk - Focused Exam Vital Signs: Vital Signs Temp Temp Pulse Resp BP BP Pulse Ox 12/06/20 10:10 142/66 H 12/06/20 10:09 142/66 H 12/06/20 07:00 97.5 F 63 18 158/84 H 93 L 12/06/20 06:49 95 12/06/20 02:19 97.5 F 54 L 16 156/68 H 93 L 12/06/20 00:46 94 L 12/05/20 23:00 97.9 F 53 L 16 148/78 H 95 - Problem List Review Problem List Initiated/Reviewed/Updated: Yes - My Orders Last 24 Hours: My Active Orders 12/06/20 09:33 Evaluate for Home Oxygen [RT Evaluate for Home Oxygen] [RC] Click to Edit - Plan Plan:: ASSESSMENT AND PLAN COVID-19 pneumonia-complicated by acute respiratory failure with hypoxia. Still hypoxic but respiratory status stable on 2 L. Less short of breath with activity -Remdesivir completed -Dexamethasone 6 mg daily (day 7) -Enoxaparin 40 mg every 12 hours -Labs every 2 to 3 days -Isolation precautions Hypoxic respiratory failure-secondary to COVID-19 infection -Supplemental oxygen as needed Essential hypertension-blood pressure controlled. -Continue home medications Maintenance issues - -DVT prophylaxis-enoxaparin -GI prophylaxis-not indicated -Nutrition-regular -Bergeron catheter-not indicated CODE STATUS -DNR/DNI Disposition -I anticipate discharge home tomorrow with supplemental oxygen Primary care physician -Dr. Juanjose Mari
[2020-12-06] MEDS: Dexamethasone 4 MG/ML SDV IVPUSH SCH (21:01)
[2020-12-06] MEDS: Melatonin 3 MG Tab PO PRN (23:29)
[2020-12-07] MEDS: Doxazosin 4 MG Tab PO SCH (09:25)
[2020-12-07] MEDS: Enoxaparin 40 MG/0.4 ML Syringe SUBCUT SCH (09:25)
[2020-12-07] MEDS: Diltiazem 180 MG Cap.CD PO SCH (09:26)
[2020-12-07] MEDS: Cholecalciferol (Vitamin D3) 25 MCG Tab PO SCH (09:26)
[2020-12-07] MEDS: Aspirin 81 MG Tab.EC PO SCH (09:26)
[2020-12-07] MEDS: Lisinopril 20 MG Tab PO SCH (09:27)
--- NOTE | 2020-12-07 10:12 | PCM.DCSUM1 ---
Discharge Summary - Hospital Course Brief History: Mr. Caputo is an 80-year-old gentleman who was admitted through the emergency department with shortness of breath and hypoxia secondary to COVID-19 infection with pneumonia. - Discharge Data Discharge Date: 12/07/20 Discharge Disposition: Home, Self-Care 01 Condition: Fair - Referral to Home Health Primary Care Physician: Juanjose Mari Sr, MD - Discharge Diagnosis/Problem(s) (1) Respiratory failure with hypoxia SNOMED Code(s): 03241822507087758 ICD Code: J96.91 - RESPIRATORY FAILURE, UNSPECIFIED WITH HYPOXIA Status: Acute Current Visit: Yes (2) SARS-CoV-2 positive SNOMED Code(s): 2614185648884862 ICD Code: U07.1 - COVID-19 Status: Acute Current Visit: Yes (3) Pneumonia due to 2019 novel coronavirus SNOMED Code(s): 851023878623766152 ICD Code: U07.1 - COVID-19; J12.82 - PNEUMONIA DUE TO CORONAVIRUS DISEASE 2019 Status: Acute Current Visit: Yes (4) Acute respiratory failure due to COVID-19 SNOMED Code(s): 438136395 ICD Code: U07.1 - COVID-19; J96.00 - ACUTE RESPIRATORY FAILURE, UNSP W HYPOXIA OR HYPERCAPNIA Status: Acute Current Visit: Yes - Patient Summary/Data Hospital Course: Mr. Caputo presented to the emergency room with about 10-12 days of progressive fatigue, weakness as well as cough and shortness of breath. Symptoms have progressed a little bit more rapidly over the past 3 or 4 days. He is to be able to walk 100 to 150 feet before he became short of breath and now he can only walk 10 to 15 feet before he has to stop to catch his breath. He is coughing frequently with some clear sputum. He does not report any chest pain. He is not aware of any fevers. His appetite has been decreased but he thinks his food intake has been okay. He did not get his Covid vaccine. He did see his primary care provider who started him on azithromycin and hydroxychloroquine as well as a Medrol Dosepak. He has gotten worse since those medications were started so he came to the emergency room. Work-up in the emergency room revealed evidence for hypoxia due to the Covid pneumonia diagnosed yesterday. CRP and D-dimer were modestly elevated. Vital signs are stable other than the oxygenation. Patient will be admitted for management of hypoxic respiratory failure due to Covid pneumonia. On admission he was placed on supplemental oxygen as well as a course of remdesivir and IV Decadron. He slowly improved during hospitalization but at the time of discharge still required supplemental oxygen to maintain adequate oxygenation. On the day prior to discharge he was qualified for home O2 with oxygen saturation of 87% at rest on room air. Is anticipated that he will only require the supplemental oxygen for a few weeks and then it can be discontinued. He had completed his full course of remdesivir as well as 7 days of IV Decadron. He will remain on isolation until December 11. Activity will be as tolerated and he will resume his usual diet. Follow-up appointment will be scheduled with his primary care provider within 1 week. - Patient Instructions Diet: Usual Diet as Tolerated Activity: As Tolerated Other/Special Instructions: Please schedule follow-up appointment with primary care provider within 1 week. - Discharge Plan *PRESCRIPTION DRUG MONITORING PROGRAM REVIEWED*: Not Applicable *COPY OF PRESCRIPTION DRUG MONITORING REPORT IN PATIENT [place]: Not Applicable Home Medications: Home Meds Aspirin [Halfprin] 81 mg PO DAILY 11/30/20 [History] Cetirizine [ZyrTEC] 10 mg PO DAILY 11/30/20 [History] Cholecalciferol (Vitamin D3) [Vitamin D3] 5,000 unit PO DAILY 11/30/20 [History] Doxazosin Mesylate [Cardura] 8 mg PO DAILY 11/30/20 [History] dilTIAZem HCL [Diltiazem 24Hr ER] 360 mg PO DAILY 11/30/20 [History] lisinopriL [Lisinopril] 40 mg PO DAILY 11/30/20 [History] Oxygen Therapy Mode: Nasal Cannula Oxygen Flow Rate (L/min): 2 Referrals: Juanjose Mari Sr, MD [Primary Care Provider] - - Discharge Summary/Plan Comment DC Time >30 min.: No Total # of Minutes for Discharge Time: 20 - Patient Data Vitals - Most Recent: Last Vital Signs Temp 98.0 F 12/07/20 07:34 Pulse 65 12/07/20 07:34 Resp 18 12/07/20 07:34 BP 141/71 H 12/07/20 09:27 Pulse Ox 92 L 12/07/20 07:34 Weight - Most Recent: 195 lb 0.017 oz I&O - Last 24 hours: Intake & Output 12/06/20 12/07/20 12/07/20 22:59 06:59 14:59 Intake Total 760 705 Output Total 800 400 Balance -40 305 Med Orders - Current: Current Medications Acetaminophen (Acetaminophen 325 Mg Tab) 650 mg PO Q4H PRN PRN Reason: Pain (Mild 1-3)/fever Aspirin (Aspirin 81 Mg Tab.Ec) 81 mg PO DAILY [facility] Last Admin: 12/07/20 09:26 Dose: 81 mg Documented by: Benzonatate (Benzonatate 100 Mg Cap) 100 mg PO TID PRN PRN Reason: Cough Last Admin: 12/04/20 13:01 Dose: 100 mg Documented by: Cholecalciferol (Cholecalciferol (Vitamin D3) 25 Mcg Tab) 125 mcg PO DAILY [facility] Last Admin: 12/07/20 09:26 Dose: 125 mcg Documented by: Dexamethasone (Dexamethasone 4 Mg/Ml Sdv) 6 mg IVPUSH Q24H [facility] Last Admin: 12/06/20 21:01 Dose: 6 mg Documented by: Diltiazem HCl (Diltiazem 180 Mg Cap.Cd) 360 mg PO DAILY [facility] Last Admin: 12/07/20 09:26 Dose: 360 mg Documented by: Doxazosin Mesylate (Doxazosin 4 Mg Tab) 8 mg PO DAILY [facility] Last Admin: 12/07/20 09:25 Dose: 8 mg Documented by: Enoxaparin Sodium (Enoxaparin 40 Mg/0.4 Ml Syringe) 40 mg SUBCUT Q12H [facility] Last Admin: 12/07/20 09:25 Dose: 40 mg Documented by: Guaifenesin/Dextromethorphan (Guaifenesin/Dextromethorphan 100-10 Mg/5 Ml Soln 10 Ml Cup) 10 ml PO Q4H PRN PRN Reason: Cough Lisinopril (Lisinopril 20 Mg Tab) 40 mg PO DAILY [facility] Last Admin: 12/07/20 09:27 Dose: 40 mg Documented by: Magnesium Hydroxide (Magnesium Hydroxide 400 Mg/5 Ml Susp 30 Ml Cup) 30 ml PO Q12H PRN PRN Reason: Constipation Melatonin (Melatonin 3 Mg Tab) 9 mg PO BEDTIME PRN PRN Reason: Sleep Last Admin: 12/06/20 23:29 Dose: 9 mg Documented by: Ondansetron HCl (Ondansetron 4 Mg/2 Ml Sdv) 4 mg IV Q6H PRN PRN Reason: Nausea/Vomiting Ondansetron HCl (Ondansetron 4 Mg Tab.Dis) 4 mg PO Q6H PRN PRN Reason: Nausea able to take PO Senna/Docusate Sodium (Docusate Sodium/Sennosides 50-8.6 Mg Tab) 1 tab PO BID PRN PRN Reason: Constipation Last Admin: 12/02/20 21:44 Dose: 1 tab Documented by: Sodium Chloride (Sodium Chloride 0.9% 10 Ml Syringe) 10 ml FLUSH ASDIRECTED PRN PRN Reason: Keep Vein Open Last Admin: 11/30/20 21:26 Dose: 10 ml Documented by: Discontinued Medications Dexamethasone (Dexamethasone 4 Mg/Ml Sdv) 6 mg IVPUSH Q24H [facility] Last Admin: 12/01/20 01:41 Dose: 6 mg Documented by: Enoxaparin Sodium (Enoxaparin 40 Mg/0.4 Ml Syringe) 40 mg SUBCUT NOW ONE Stop: 12/01/20 02:01 Last Admin: 12/01/20 01:56 Dose: 40 mg Documented by: Sodium Chloride (Normal Saline) 1,000 mls @ 50 mls/hr IV ASDIRECTED [facility] Last Admin: 11/30/20 21:25 Dose: 50 mls/hr Documented by: Remdesivir 200 mg/ Sodium (Chloride) 250 mls @ 250 mls/hr IV ONETIME ONE Stop: 11/30/20 23:36 Last Admin: 12/01/20 01:51 Dose: 250 mls/hr Documented by: Remdesivir 100 mg/ Sodium (Chloride) 100 mls @ 100 mls/hr IV Q24H [facility] Stop: 12/04/20 21:59 Last Admin: 12/04/20 21:16 Dose: 100 mls/hr Documented by: - Exam General: Reports: Alert, Oriented, Cooperative, Mild Distress Lungs: Reports: Clear to Auscultation, Normal Respiratory Effort Cardiovascular: Reports: Regular Rate, Regular Rhythm, No Murmurs GI/Abdominal Exam: Soft, Non-Tender, No Organomegaly, No Distention Extremities: Non-Tender, No Pedal Edema
== END 2020-12-07 12:42 | disposition home or self-care (01) | DRG 177 ==
LOC: JP.ED 20:08 → UNDOADMIN 12-01 00:25 → JP.2SS 12-01 00:25 → JP.MS 12-01 00:25 → UNDODISIN 12-02 10:45
PROVIDERS: ADMIT Internal Medicine; ATTEND Hospitalist
PROC: XW033E5 Introduction of Remdesivir Anti-infective into Peripheral Vein, Percutaneous Approach, New Technology Group 5 (ICD-10-PCS; principal; 2020-11-30)
PROC: 8E0ZXY6 Isolation (ICD-10-PCS; 2020-12-01)
DX: U07.1 COVID-19 (principal); J12.82 Pneumonia due to coronavirus disease 2019; J96.01 Acute respiratory failure with hypoxia; Z66 Do not resuscitate; Z90.49 Acquired absence of other specified parts of digestive tract; Z79.82 Long term (current) use of aspirin; Z87.891 Personal history of nicotine dependence; Z79.899 Other long term (current) drug therapy
CPT/HCPCS: 36415; 36600; 80053; 82728; 82803; 84145; 84484; 85025; 85027; 85379; 85610; 85651; 85730; 86140; 87040; 87070; 87205; 94762; 99285; A9270-GY; J1100; J1650; J7030; J7050